=== PATIENT | male | born 1960 | race American Indian/Alaskan Native ===

== ENCOUNTER 2021-07-11 13:08 | Inpatient (IN) | payer SELFPAY ==
--- NOTE | 2021-07-11 15:02 | Event Note ---
ED Screening Note Date of service: 07/11/21 Time: 14:59 ED Screening Note: [id number] male was sent to the ER via EMS from urgent care after he was found to be hypoxic at a visit today with an O2 sat of 91% on room air. Patient reports that he has been sick with Covid-like/flulike symptoms for about 2 weeks including cough, shortness of breath, and chest pain when he takes a deep breath. He has also been having generalized weakness, nausea, vomiting diarrhea and chills. He states that he had a COVID-19 test that the urgent care last Tuesday and had a COVID-19 test and it was negative. He states that he is not sure if he had a rapid or the PCR test. He has not gotten a COVID-19 test. He denies any known ill contacts or recent travel. Patient states that he was prescribed amoxicillin and Medrol Dosepak on Tuesday which he has been taking without much relief. He had a chest x-ray done today at the urgent care which shows bibasilar opacities most concerning for multifocal infection. Patient denied any significant past medical history including tobacco use. This initial assessment/diagnostic orders/clinical plan/treatment(s) is/are subject to change based on patients health status, clinical progression and re- assessment by fellow clinical providers in the ED. Further treatment and workup at subsequent clinical providers discretion. Patient/guardian urged not to elope from the ED as their condition may be serious if not clinically assessed and managed. Initial orders include: Dyspnea order set
--- NOTE | 2021-07-11 15:52 | XRay Report ---
XR chest routine 2V INDICATION / CLINICAL INFORMATION: Dyspnea. COMPARISON: None available. FINDINGS: SUPPORT DEVICES: None. HEART /PULMONARY VASCULATURE: No significant abnormality. LUNGS / PLEURA: Low lung volumes. There are patchy bibasilar airspace opacities. No sizable pleural e ffusion. No pneumothorax. ADDITIONAL FINDINGS: No significant additional findings. IMPRESSION: Patchy pulmonary opacities, greatest within the lung bases, compatible with pneumonia. Signer Name: Fady Miller MD Signed: 07/11/2021 3:47 PM Workstation Name: [id number]
[2021-07-11 16:11] LABS: Basophils % (Auto) 0.2 % (0.0-1.8); Hematocrit 42.2 % (35.5-45.6); Lymphocytes # (Auto) 0.9 K/mm3 (1.2-5.4); Lymphocytes % (Auto) 15.7 % (13.4-35.0); Mean Corpuscular HGB Conc 33 % (32-34); Mean Corpuscular Volume 96 fl (84-94); Monocytes # (Auto) 0.9 K/mm3 (0.0-0.8); Monocytes % (Auto) 15.1 % (0.0-7.3); Platelet Count 143 K/mm3 (140-440); Red Blood Count 4.41 M/mm3 (3.65-5.03); Red Cell Distribution Width 12.9 % (13.2-15.2)
[2021-07-11 16:36] LABS: Alanine Aminotransferase 180 units/L (7-56); Albumin 3.6 g/dL (3.9-5); BUN/Creatinine Ratio 23; Blood Urea Nitrogen 25 mg/dL (9-20); Calcium 9.1 mg/dL (8.4-10.2); Hemolysis Index 5
--- NOTE | 2021-07-11 21:57 | Emergency Department Report ---
ED Shortness of Breath HPI - General Chief Complaint: Dyspnea/Respdistress Stated Complaint: FLU LIKE SX Time Seen by Provider: 07/11/21 21:48 Source: patient, EMS Mode of arrival: Wheelchair Limitations: No Limitations - History of Present Illness Initial Comments: 61-year-old male, no past medical history, presents to ED with Covid-like symptoms. Patient sent to ED from urgent care due to O2 sat of 89% on room air. Patient reports cold-like symptoms for approximately 2 weeks. He reports fever, chills, nausea, vomiting, diarrhea, cough, shortness of breath, loss of smell and taste, generalized weakness. Patient was previously seen at another urgent care 4 days ago. He had a negative flu and COVID-19 test at that time. He was given a prescription for amoxicillin and Medrol Dosepak to treat bronchitis. Patient has not received a COVID-19 vaccine. MD Complaint: shortness of breath -: week(s) (2) Severity: moderate Consistency: constant Improves With: rest Worsens With: exertion Context: recent URI Associated Symptoms: fever, cough Treatments Prior to Arrival: oxygen - Related Data Home Oxygen Therapy: No Allergies Allergy/AdvReac Type Severity Reaction Status Date / Time No Known Allergies Allergy Verified 07/11/21 23:17 ED Review of Systems ROS: Stated complaint: FLU LIKE SX Other details as noted in HPI Comment: All other systems reviewed and negative Constitutional: chills, fever, malaise, weakness ENT: other (Reports loss of smell and taste) Respiratory: cough, shortness of breath Gastrointestinal: nausea, vomiting, diarrhea Musculoskeletal: myalgia ED Past Medical Hx - Past Medical History Previous Medical History?: No - Surgical History Past Surgical History?: No ED Physical Exam - General Limitations: No Limitations General appearance: alert, in no apparent distress - Head Head exam: Present: atraumatic, normocephalic - Eye Eye exam: Present: normal appearance, EOMI - ENT ENT exam: Present: mucous membranes moist - Neck Neck exam: Present: normal inspection - Respiratory Respiratory exam: Present: normal lung sounds bilaterally. Absent: respiratory distress - Cardiovascular Cardiovascular Exam: Present: regular rate, normal rhythm - GI/Abdominal GI/Abdominal exam: Present: soft. Absent: distended, tenderness - Extremities Exam Extremities exam: Present: normal inspection - Neurological Exam Neurological exam: Present: alert, oriented X3 - Psychiatric Psychiatric exam: Present: normal affect, normal mood - Skin Skin exam: Present: warm, dry, intact, normal color ED Course Vital Signs 07/11/21 07/11/21 07/11/21 13:50 22:25 22:31 Temperature 98.4 F Pulse Rate 89 83 82 Respiratory 18 10 L 37 H Rate Blood Pressure 108/62 125/56 O2 Sat by Pulse 93 97 98 Oximetry 07/11/21 07/11/21 07/11/21 22:36 22:39 22:45 Temperature 98.8 F Pulse Rate 86 Respiratory 26 H Rate Blood Pressure 127/59 O2 Sat by Pulse 98 97 Oximetry 07/11/21 07/11/21 07/11/21 23:01 23:15 23:31 Temperature Pulse Rate 78 84 83 Respiratory 30 H 35 H 33 H Rate Blood Pressure 118/62 122/55 119/54 O2 Sat by Pulse 98 99 98 Oximetry 07/11/21 07/11/21 07/11/21 23:34 23:45 23:55 Temperature Pulse Rate 81 88 83 Respiratory 33 H 39 H 31 H Rate Blood Pressure 119/54 122/51 128/54 O2 Sat by Pulse 98 98 98 Oximetry 07/12/21 07/12/21 07/12/21 00:01 00:15 00:31 Temperature Pulse Rate 90 84 82 Respiratory 38 H 42 H 31 H Rate Blood Pressure 128/54 119/54 113/63 O2 Sat by Pulse 98 98 98 Oximetry 07/12/21 07/12/21 07/12/21 00:45 01:01 01:15 Temperature Pulse Rate 86 79 89 Respiratory 19 29 H 30 H Rate Blood Pressure 109/58 114/63 123/66 O2 Sat by Pulse 98 99 99 Oximetry 07/12/21 07/12/21 07/12/21 01:31 01:45 02:01 Temperature Pulse Rate 84 81 78 Respiratory 29 H 26 H 29 H Rate Blood Pressure 115/60 110/55 106/49 O2 Sat by Pulse 99 99 98 Oximetry 07/12/21 07/12/21 07/12/21 02:15 02:31 02:45 Temperature Pulse Rate 83 79 80 Respiratory 25 H 27 H 29 H Rate Blood Pressure 115/60 104/56 103/51 O2 Sat by Pulse 98 96 98 Oximetry 07/12/21 07/12/21 07/12/21 03:01 03:15 03:25 Temperature Pulse Rate 79 79 Respiratory 21 25 H Rate Blood Pressure 104/48 102/56 O2 Sat by Pulse 97 97 97 Oximetry ED Medical Decision Making - Lab Data Result diagrams: 07/11/21 15:40 07/12/21 00:16 - EKG Data -: EKG Interpreted by Me EKG shows normal: sinus rhythm, axis, intervals, QRS complexes, ST-T waves Rate: normal - EKG Data Interpretation: no acute changes - Radiology Data Radiology results: report reviewed, image reviewed - Medical Decision Making 61-year-old male presents to ED with 2-week history of cold-like symptoms and shortness of breath. O2 sats 89% on room air at outpatient urgent care center. Patient currently on 2 L O2. Chest x-ray shows bilateral pneumonia. Blood cultures drawn, patient given Rocephin, azithromycin, and Decadron. Labs show elevated liver enzymes. Covid markers have been sent. Covid test has been ordered. Patient will be admitted by hospitalist, Dr. Mcdonnell, for further management. - Differential Diagnosis COVID-19, pneumonia Critical Care Time: Yes Critical care time in (mins) excluding proc time.: 35 Critical care attestation.: If time is entered above; I have spent that time in minutes in the direct care of this critically ill patient, excluding procedure time. Critical Care Time: 35 min ED Disposition Clinical Impression: Acute on chronic respiratory failure with hypoxia, Pneumonia, Suspected COVID- 19 virus infection, Elevated liver enzymes Disposition: ADMITTED INPATIENT Is pt being admited?: Yes Condition: Stable Time of Disposition: 22:33
[2021-07-11] MEDS ORDERED: ONDANSETRON 4 MG/2 ML INJ IV ONE (21:59)
[2021-07-11] MEDS ORDERED: DEXAMETHASONE 4 MG TAB PO ONE (21:59)
[2021-07-11] MEDS ORDERED: AZITHROMYCIN 250 MG TAB PO ONE (21:59)
[2021-07-11] MEDS ORDERED: cefTRIAXone/NS 1 GM/50 ML 1 GM/50 ML BAG IV ONE (21:59)
[2021-07-11] MEDS ORDERED: HYDROmorphone 1 MG/1 ML INJ IV PRN (23:07)
[2021-07-11] MEDS ORDERED: ONDANSETRON 4 MG/2 ML INJ IV PRN (23:07)
[2021-07-11] MEDS ORDERED: ALBUTEROL 2.5 MG/3 ML NEBU IH PRN (23:07)
[2021-07-11] MEDS ORDERED: ACETAMINOPHEN 325 MG TAB PO PRN (23:07)
[2021-07-11] MEDS ORDERED: oxyCODONE /ACETAMINOPHEN 5-325MG TAB PO PRN (23:07)
[2021-07-11] MEDS ORDERED: hydrALAZINE 20 MG/1 ML INJ IV PRN (23:09)
--- NOTE | 2021-07-11 23:14 | History and Physical Report ---
History of Present Illness Date of examination: 07/11/21 Date of admission: 07/11/2021 Chief complaint: Shortness of breath Respiratory distress History of present illness: 61-year-old male, no past medical history, presents to ED with Covid-like symptoms for the last 2 weeks. Patient was sent from the urgent care because patient was found to have O2 sat of 89%. He reports fever, chills, nausea, vomiting, diarrhea, cough, shortness of breath, loss of smell and taste, generalized weakness. Patient was previously seen at another urgent care 4 days ago. He had a negative flu and COVID-19 test at that time. He was given a prescription for amoxicillin and Medrol Dosepak to treat bronchitis. Patient has not received a COVID-19 vaccine. In the emergency room patient chest x-ray showed Covid like pneumonia Medications and Allergies Allergies Allergy/AdvReac Type Severity Reaction Status Date / Time No Known Allergies Allergy Unverified 07/11/21 13:46 Review of Systems All systems: negative Constitutional: fever Respiratory: cough, shortness of breath, dyspnea on exertion Exam - Constitutional Vitals: Temp Pulse Resp BP Pulse Ox 98.8 F 82 37 H 125/56 98 07/11/21 22:36 07/11/21 22:31 07/11/21 22:31 07/11/21 22:31 07/11/21 22:39 General appearance: Present: no acute distress, well-nourished - EENT Eyes: Present: PERRL ENT: hearing intact, clear oral mucosa - Neck Neck: Present: supple, normal ROM - Respiratory Respiratory effort: normal Respiratory: bilateral: diminished - Cardiovascular Heart Sounds: Present: S1 & S2. Absent: rub, click - Extremities Extremities: pulses symmetrical, No edema Peripheral Pulses: within normal limits - Abdominal General gastrointestinal: Present: soft, non-tender, non-distended, normal bowel sounds Male genitourinary: Present: normal - Integumentary Integumentary: Present: clear, warm, dry - Musculoskeletal Musculoskeletal: gait normal, strength equal bilaterally - Psychiatric Psychiatric: appropriate mood/affect, intact judgment & insight - Neurologic Neurologic: CNII-XII intact, moves all extremities HEART Score - HEART Score Troponin: Troponin T < 0.010 ng/mL (0.00-0.029) 07/11/21 15:40 Results - Labs CBC & Chem 7: 07/11/21 15:40 07/11/21 15:40 Labs: Laboratory Last Values WBC 5.7 K/mm3 (4.5-11.0) 07/11/21 15:40 RBC 4.41 M/mm3 (3.65-5.03) 07/11/21 15:40 Hgb 14.0 gm/dl (11.8-15.2) 07/11/21 15:40 Hct 42.2 % (35.5-45.6) 07/11/21 15:40 MCV 96 fl (84-94) H 07/11/21 15:40 MCH 32 pg (28-32) 07/11/21 15:40 MCHC 33 % (32-34) 07/11/21 15:40 RDW 12.9 % (13.2-15.2) L 07/11/21 15:40 Plt Count 143 K/mm3 (140-440) 07/11/21 15:40 Lymph % (Auto) 15.7 % (13.4-35.0) 07/11/21 15:40 [place] % (Auto) 15.1 % (0.0-7.3) H 07/11/21 15:40 Eos % (Auto) 0.0 % (0.0-4.3) 07/11/21 15:40 Baso % (Auto) 0.2 % (0.0-1.8) 07/11/21 15:40 Lymph # (Auto) 0.9 K/mm3 (1.2-5.4) L 07/11/21 15:40 [place] # (Auto) 0.9 K/mm3 (0.0-0.8) H 07/11/21 15:40 Eos # (Auto) 0.0 K/mm3 (0.0-0.4) 07/11/21 15:40 Baso # (Auto) 0.0 K/mm3 (0.0-0.1) 07/11/21 15:40 Seg Neutrophils % 69.0 % (40.0-70.0) 07/11/21 15:40 Seg Neutrophils # 3.9 K/mm3 (1.8-7.7) 07/11/21 15:40 Sodium 136 mmol/L (137-145) L 07/11/21 15:40 Potassium 4.4 mmol/L (3.6-5.0) 07/11/21 15:40 Chloride 96.7 mmol/L (98-107) L 07/11/21 15:40 Carbon Dioxide 28 mmol/L (22-30) 07/11/21 15:40 Anion Gap 16 mmol/L 07/11/21 15:40 BUN 25 mg/dL (9-20) H 07/11/21 15:40 Creatinine 1.1 mg/dL (0.8-1.3) 07/11/21 15:40 Estimated GFR > 60 ml/min 07/11/21 15:40 BUN/Creatinine Ratio 23 % 07/11/21 15:40 Glucose 106 mg/dL (75-100) H 07/11/21 15:40 Calcium 9.1 mg/dL (8.4-10.2) 07/11/21 15:40 Magnesium 2.60 mg/dL (1.7-2.3) H 07/11/21 15:40 Total Bilirubin 1.20 mg/dL (0.1-1.2) 07/11/21 15:40 AST 187 units/L (5-40) H 07/11/21 15:40 ALT 180 units/L (7-56) H 07/11/21 15:40 Alkaline Phosphatase 74 units/L (35-129) 07/11/21 15:40 Troponin T < 0.010 ng/mL (0.00-0.029) 07/11/21 15:40 Total Protein 7.7 g/dL (6.3-8.2) 07/11/21 15:40 Albumin 3.6 g/dL (3.9-5) L 07/11/21 15:40 Albumin/Globulin Ratio 0.9 % 07/11/21 15:40 Lipase 60 units/L (13-60) 07/11/21 15:40 - Imaging and Cardiology Chest x-ray: report reviewed Assessment and Plan VTE prophylaxis?: Chemical Plan of care discussed with patient/family: Yes - Patient Problems (1) Acute on chronic respiratory failure with hypoxia Current Visit: Yes Status: Acute Plan to address problem: Admit the patient to the medical floor. Put the patient on oxygen via nasal cannula 3 L/min. DuoNeb by nebulizer every 4 hours. Albuterol via nebulizer every 4 hours as needed. Dexamethasone 6 mg IV daily. Rocephin 2 g IV daily and Zithromax 500 mg IV daily. We do the blood cultures sputum culture. We will do Covid PCR and follow the Covid inflammatory marker. We also consult infectious disease (2) Suspected COVID-19 virus infection Current Visit: Yes Status: Acute Plan to address problem: Put the patient on oxygen via nasal cannula 3 L/min. DuoNeb by nebulizer every 4 hours. Albuterol via nebulizer every 4 hours as needed. Dexamethasone 6 mg IV daily. Rocephin 2 g IV daily and Zithromax 500 mg IV daily. We do the blood cultures sputum culture. We will do Covid PCR and follow the Covid inflammatory marker. We also consult infectious disease (3) Pneumonia Current Visit: Yes Status: Acute Plan to address problem: Rocephin 2 g IV daily and Zithromax 500 mg IV daily. We do the blood cultures sputum culture. We will do Covid PCR and follow the Covid inflammatory marker. We also consult infectious disease (4) DVT prophylaxis Current Visit: Yes Status: Acute Plan to address problem: Heparin 5000 units subcu every 8 hours for DVT prophylaxis. Pepcid 20 mg p.o. twice daily for GI prophylaxis. Patient is a full code
[2021-07-12] MEDS: cefTRIAXone/NS 2 GM/100 ML 2 GM/100 ML BAG IV SCH
[2021-07-12 01:32] LABS: C-Reactive Protein 10.6 mg/dL (0.00-1.30)
[2021-07-12] MEDS: IPRATROPIUM/ALBUTEROL SULFATE 3 ML AMPUL.NEB IH SCH ×3 (03:25→16:45)
[2021-07-12 06:55] LABS: Basophils % (Auto) 0.1 % (0.0-1.8); Hematocrit 38.4 % (35.5-45.6); Hemoglobin 12.8 gm/dl (11.8-15.2); Lymphocytes # (Auto) 0.6 K/mm3 (1.2-5.4); Lymphocytes % (Auto) 11.4 % (13.4-35.0); Mean Corpuscular HGB Conc 33 % (32-34); Mean Corpuscular Volume 95 fl (84-94); Monocytes # (Auto) 0.7 K/mm3 (0.0-0.8); Monocytes % (Auto) 15.3 % (0.0-7.3); Platelet Count 145 K/mm3 (140-440); Red Blood Count 4.03 M/mm3 (3.65-5.03); Red Cell Distribution Width 13.2 % (13.2-15.2)
[2021-07-12 07:06] LABS: BUN/Creatinine Ratio 25; Blood Urea Nitrogen 33 mg/dL (9-20); Calcium 8.5 mg/dL (8.4-10.2); Hemolysis Index 0
[2021-07-12] MEDS: HEPARIN 5,000 UNIT/1 ML VIAL SUB-Q SCH ×3 (07:32→23:40)
--- NOTE | 2021-07-12 08:47 | Progress Note ---
Assessment and Plan Assessment and plan: 61-year-old male, no past medical history, presents with Covid-like symptoms for the last 2 weeks. Sent from urgent care due to O2 sat of 89%. ROS positive for fever, chills, nausea, vomiting, diarrhea, cough, shortness of breath, loss of smell and taste, generalized weakness. He was negative for flu and COVID-19 test at that time add a different urgent care facility 4 days ago and was given a prescription for amoxicillin and Medrol Dosepak to treat bronchitis. Patient has not received a COVID-19 vaccine. 1. acute on chronic respiratory failure with hypoxia -Supplemental oxygen currently on 3 L/min. De-escalate as patient tolerates. If worsens will consider pulmonology consult. - Chest x-ray with bilateral patchy opacities. Inflammatory markers elevated. Procalcitonin is elevated 0.4. Blood cultures, sputum culture DuoNebs scheduled and as needed Decadron 6 mg IV x10-day total to therapy Azithromycin IV/ceftriaxone IV initiated Remdesivir not indicated per infectious disease 2. Suspected COVID-19 virus infection Pending COVID-19 test. -Follow inflammatory markers Infectious disease consulted, recommend discontinuation of Covid standard therapy if test negative 3. Pneumonia -Management as above 4.transaminitis Likely due to underlying infection Trend on hepatic profile 5. DVT prophylaxis Heparin 5000 units subcu every 8 hours Code Status: Full code Diet: Regular diet VTE PPx: Heparin 5000 units subcu q 8 h GI PPx: Not indicated Dispo: Pending clinical improvement and de-escalation of oxygen. Follow-up Covid 19 PCR test History Interval history: No acute overnight events. Patient states that he is feeling better compared to yesterday. Hospitalist Physical - Physical exam Narrative exam: Physical Exam: Constitutional: Alert, cooperative. No acute distress. On 3L/min NC. Head, Ears, Nose: Normocephalic, atraumatic. External ears, nose normal Eyes: Conjunctivae/corneas clear. No icterus. No ptosis. Neck: Supple, no meningeal signs Oral: dentition fair, no thrush Cardiovascular: S1, S2 normal. Respiratory: Poor air entry, wheezes bilaterally GI: Soft, non-tender; bowel sounds normal. No peritoneal signs. Musculoskeletal: No pedal edema, no cyanosis. Skin: No rash or abscess Hem/Lymphatic: No palpable cervical or supraclavicular nodes. No lymphangitis Psych: Mood ok. Affect normal Neurological: Awake, alert, oriented. No gross abnormality - Constitutional Vitals: Temp Pulse Resp BP Pulse Ox 98.8 F 84 44 H 106/61 95 07/11/21 22:36 07/12/21 06:31 07/12/21 06:31 07/12/21 06:31 07/12/21 06:31 General appearance: Present: no acute distress, well-nourished HEART Score - HEART Score Troponin: Troponin T < 0.010 ng/mL (0.00-0.029) 07/11/21 15:40 Results - Labs CBC & Chem 7: 07/12/21 05:52 07/12/21 05:52 Labs: Laboratory Last Values WBC 4.8 K/mm3 (4.5-11.0) 07/12/21 05:52 RBC 4.03 M/mm3 (3.65-5.03) 07/12/21 05:52 Hgb 12.8 gm/dl (11.8-15.2) 07/12/21 05:52 Hct 38.4 % (35.5-45.6) 07/12/21 05:52 MCV 95 fl (84-94) H 07/12/21 05:52 MCH 32 pg (28-32) 07/12/21 05:52 MCHC 33 % (32-34) 07/12/21 05:52 RDW 13.2 % (13.2-15.2) 07/12/21 05:52 Plt Count 145 K/mm3 (140-440) 07/12/21 05:52 Lymph % (Auto) 11.4 % (13.4-35.0) L 07/12/21 05:52 [place] % (Auto) 15.3 % (0.0-7.3) H 07/12/21 05:52 Eos % (Auto) 0.0 % (0.0-4.3) 07/12/21 05:52 Baso % (Auto) 0.1 % (0.0-1.8) 07/12/21 05:52 Lymph # (Auto) 0.6 K/mm3 (1.2-5.4) L 07/12/21 05:52 [place] # (Auto) 0.7 K/mm3 (0.0-0.8) 07/12/21 05:52 Eos # (Auto) 0.0 K/mm3 (0.0-0.4) 07/12/21 05:52 Baso # (Auto) 0.0 K/mm3 (0.0-0.1) 07/12/21 05:52 Seg Neutrophils % 73.2 % (40.0-70.0) H 07/12/21 05:52 Seg Neutrophils # 3.5 K/mm3 (1.8-7.7) 07/12/21 05:52 D-Dimer 601.22 ng/mlDDU (0-234) H 07/12/21 00:16 Sodium 139 mmol/L (137-145) 07/12/21 05:52 Potassium 4.2 mmol/L (3.6-5.0) 07/12/21 05:52 Chloride 99.7 mmol/L (98-107) 07/12/21 05:52 Carbon Dioxide 29 mmol/L (22-30) 07/12/21 05:52 Anion Gap 15 mmol/L 07/12/21 05:52 BUN 33 mg/dL (9-20) H 07/12/21 05:52 Creatinine 1.3 mg/dL (0.8-1.3) 07/12/21 05:52 Estimated GFR > 60 ml/min 07/12/21 05:52 BUN/Creatinine Ratio 25 % 07/12/21 05:52 Glucose 119 mg/dL (75-100) H 07/12/21 05:52 Calcium 8.5 mg/dL (8.4-10.2) 07/12/21 05:52 Magnesium 2.60 mg/dL (1.7-2.3) H 07/11/21 15:40 Ferritin 7307.0 ng/mL (30.0-300.0) H 07/12/21 00:16 Total Bilirubin 1.20 mg/dL (0.1-1.2) 07/11/21 15:40 AST 187 units/L (5-40) H 07/11/21 15:40 ALT 180 units/L (7-56) H 07/11/21 15:40 Alkaline Phosphatase 74 units/L (35-129) 07/11/21 15:40 Lactate Dehydrogenase 774 units/L (91-180) H 07/12/21 00:16 Troponin T < 0.010 ng/mL (0.00-0.029) 07/11/21 15:40 C-Reactive Protein 10.60 mg/dL (0.00-1.30) H 07/12/21 00:16 Total Protein 7.7 g/dL (6.3-8.2) 07/11/21 15:40 Albumin 3.6 g/dL (3.9-5) L 07/11/21 15:40 Albumin/Globulin Ratio 0.9 % 07/11/21 15:40 Lipase 60 units/L (13-60) 07/11/21 15:40 Microbiology: Microbiology 07/12/21 00:16 Peripheral/Venous Blood Culture - Preliminary Culture in Progress 07/12/21 00:12 Peripheral/Venous Blood Culture - Preliminary Culture in Progress Active Medications - Current Medications Current Medications: Generic Name Dose Route Start Last Admin Trade Name Freq PRN Reason Stop Dose Admin Acetaminophen 650 mg 07/11/21 23:07 Acetaminophen 325 Mg Tab PO Q4H PRN Pain MILD(1-3)/Fever >100.5/HOPPER Albuterol 2.5 mg 07/11/21 23:07 Albuterol 2.5 Mg/3 Ml Nebu IH Q4HRT PRN Shortness Of Breath Albuterol/Ipratropium 1 ampul 07/12/21 02:00 07/12/21 03:25 Ipratropium/Albuterol Sulfate 3 Ml Ampul.Neb IH Not Given Q6HRT [facility] Dexamethasone 6 mg 07/12/21 10:00 Dexamethasone 4 Mg/Ml Vial IV DAILY DARY Famotidine 20 mg 07/12/21 10:00 Famotidine 20 Mg Tab PO BID DARY Heparin Sodium (Porcine) 5,000 unit 07/12/21 06:00 07/12/21 07:32 Heparin 5,000 Unit/1 Ml Vial SUB-Q 5,000 unit Q8HR DARY Administration Hydralazine HCl 10 mg 07/11/21 23:09 Hydralazine 20 Mg/1 Ml Inj IV Q6H PRN Blood Pressure Hydromorphone HCl 0.5 mg 07/11/21 23:07 Hydromorphone 1 Mg/1 Ml Inj IV Q3H PRN Pain , Severe (7-10) Ceftriaxone Sodium 2 gm in 100 mls @ 200 mls/hr 07/12/21 23:00 Rocephin/Ns 2 Gm/100 Ml IV Q24H [facility] Protocol Azithromycin 500 mg in 250 mls @ 250 mls/hr 07/12/21 23:00 Zithromax/Ns IV Q24H [facility] Protocol Ondansetron HCl 4 mg 07/11/21 23:07 Ondansetron 4 Mg/2 Ml Inj IV Q8H PRN Nausea And Vomiting Oxycodone/Acetaminophen 1 tab 07/11/21 23:07 Oxycodone /Acetaminophen 5-325mg Tab PO Q6H PRN Pain, Moderate (4-6) Sodium Chloride 10 ml 07/12/21 10:00 Sodium Chloride 0.9% 10 Ml Flush Syringe IV BID DARY Sodium Chloride 10 ml 07/11/21 23:07 Sodium Chloride 0.9% 10 Ml Flush Syringe IV PRN PRN LINE FLUSH
[2021-07-12] MEDS ORDERED: FAMOTIDINE 20 MG TAB PO SCH (10:00)
[2021-07-12] MEDS: dexAMETHasone 4 MG/ML VIAL IV SCH (11:51)
--- NOTE | 2021-07-12 11:55 | Consultation ---
History of Present Illness - Reason for Consult Consult date: 07/12/21 COVID-19 - History of Present Illness 61-year-old male without any medical history admitted for 2-week history of fever, chills, nausea, vomiting, diarrhea, cough, progressive shortness of breath. Patient was seen at urgent care facility and O2 sat were found down to 89%. Patient was given a prescription for amoxicillin and Medrol pack without improvement. Patient did not receive COVID-19 vaccination. On arrival O2 sat down to 93%, patient currently on 3 L nasal cannula. Review of Systems: reviewed ED and H&P notes. Review of system deferred to minimize COVID-19 transmission. Medications and Allergies Allergies Allergy/AdvReac Type Severity Reaction Status Date / Time No Known Allergies Allergy Verified 07/11/21 23:17 Active Meds: Active Medications Acetaminophen (Acetaminophen 325 Mg Tab) 650 mg PO Q4H PRN PRN Reason: Pain MILD(1-3)/Fever >100.5/HOPPER Albuterol (Albuterol 2.5 Mg/3 Ml Nebu) 2.5 mg IH Q4HRT PRN PRN Reason: Shortness Of Breath Albuterol/Ipratropium (Ipratropium/Albuterol Sulfate 3 Ml Ampul.Neb) 1 ampul IH Q6HRT [facility] Last Admin: 07/12/21 11:13 Dose: 1 ampul Documented by: Dexamethasone (Dexamethasone 4 Mg/Ml Vial) 6 mg IV DAILY [facility] Last Admin: 07/12/21 11:51 Dose: 6 mg Documented by: Famotidine (Famotidine 20 Mg Tab) 20 mg PO BID [facility] Last Admin: 07/12/21 11:51 Dose: 20 mg Documented by: Heparin Sodium (Porcine) (Heparin 5,000 Unit/1 Ml Vial) 5,000 unit SUB-Q Q8HR [facility] Last Admin: 07/12/21 07:32 Dose: 5,000 unit Documented by: Hydralazine HCl (Hydralazine 20 Mg/1 Ml Inj) 10 mg IV Q6H PRN PRN Reason: Blood Pressure Hydromorphone HCl (Hydromorphone 1 Mg/1 Ml Inj) 0.5 mg IV Q3H PRN PRN Reason: Pain , Severe (7-10) Ceftriaxone Sodium (Rocephin/Ns 2 Gm/100 Ml) 2 gm in 100 mls @ 200 mls/hr IV Q24H DARY; Protocol Azithromycin (Zithromax/Ns) 500 mg in 250 mls @ 250 mls/hr IV Q24H DARY; Protocol Ondansetron HCl (Ondansetron 4 Mg/2 Ml Inj) 4 mg IV Q8H PRN PRN Reason: Nausea And Vomiting Oxycodone/Acetaminophen (Oxycodone /Acetaminophen 5-325mg Tab) 1 tab PO Q6H PRN PRN Reason: Pain, Moderate (4-6) Sodium Chloride (Sodium Chloride 0.9% 10 Ml Flush Syringe) 10 ml IV BID DARY Last Admin: 07/12/21 11:51 Dose: 10 ml Documented by: Sodium Chloride (Sodium Chloride 0.9% 10 Ml Flush Syringe) 10 ml IV PRN PRN PRN Reason: LINE FLUSH Physical Examination - Physical Exam Narrative exam: Physical exam deferred to minimize COVID-19 transmission during pandemic. - Constitutional Vitals: Vital Signs Temp Pulse Resp BP Pulse Ox 98.8 F 84 44 H 106/61 95 07/11/21 22:36 07/12/21 06:31 07/12/21 06:31 07/12/21 06:31 07/12/21 06:31 Temperature -Last 24 Hours Temperature 98.8 F Temperature 98.4 F Results - Labs CBC & Chem 7: 07/12/21 05:52 07/12/21 05:52 Labs: Abnormal lab results 07/11/21 07/11/21 07/12/21 Range/Units 15:40 15:40 00:16 MCV 96 H (84-94) fl RDW 12.9 L (13.2-15.2) % Lymph % (Auto) (13.4-35.0) % [place] % (Auto) 15.1 H (0.0-7.3) % Lymph # (Auto) 0.9 L (1.2-5.4) K/mm3 [place] # (Auto) 0.9 H (0.0-0.8) K/mm3 Seg Neutrophils % (40.0-70.0) % D-Dimer 601.22 H (0-234) ng/mlDDU Sodium 136 L (137-145) mmol/L Chloride 96.7 L (98-107) mmol/L BUN 25 H (9-20) mg/dL Glucose 106 H (75-100) mg/dL Magnesium 2.60 H (1.7-2.3) mg/dL Ferritin (30.0-300.0) ng/mL AST 187 H (5-40) units/L ALT 180 H (7-56) units/L Lactate Dehydrogenase (91-180) units/L C-Reactive Protein (0.00-1.30) mg/dL Albumin 3.6 L (3.9-5) g/dL 07/12/21 07/12/21 07/12/21 Range/Units 00:16 00:16 05:52 MCV 95 H (84-94) fl RDW (13.2-15.2) % Lymph % (Auto) 11.4 L (13.4-35.0) % [place] % (Auto) 15.3 H (0.0-7.3) % Lymph # (Auto) 0.6 L (1.2-5.4) K/mm3 [place] # (Auto) (0.0-0.8) K/mm3 Seg Neutrophils % 73.2 H (40.0-70.0) % D-Dimer (0-234) ng/mlDDU Sodium (137-145) mmol/L Chloride (98-107) mmol/L BUN (9-20) mg/dL Glucose 104 H (75-100) mg/dL Magnesium (1.7-2.3) mg/dL Ferritin 7307.0 H (30.0-300.0) ng/mL AST (5-40) units/L ALT (7-56) units/L Lactate Dehydrogenase 774 H (91-180) units/L C-Reactive Protein 10.60 H (0.00-1.30) mg/dL Albumin (3.9-5) g/dL 07/12/21 Range/Units 05:52 MCV (84-94) fl RDW (13.2-15.2) % Lymph % (Auto) (13.4-35.0) % [place] % (Auto) (0.0-7.3) % Lymph # (Auto) (1.2-5.4) K/mm3 [place] # (Auto) (0.0-0.8) K/mm3 Seg Neutrophils % (40.0-70.0) % D-Dimer (0-234) ng/mlDDU Sodium (137-145) mmol/L Chloride (98-107) mmol/L BUN 33 H (9-20) mg/dL Glucose 119 H (75-100) mg/dL Magnesium (1.7-2.3) mg/dL Ferritin (30.0-300.0) ng/mL AST (5-40) units/L ALT (7-56) units/L Lactate Dehydrogenase (91-180) units/L C-Reactive Protein (0.00-1.30) mg/dL Albumin (3.9-5) g/dL Assessment and Plan Cultures: Blood culture pending SARS CoV2 PCR pending Assessment: 61-year-old male without any medical history admitted for 2-week history of fever, chills, nausea, vomiting, diarrhea, cough, progressive shortness of breath: #Presumed COVID pneumonia versus community-acquired pneumonia: Chest x-ray with bilateral patchy opacities. Inflammatory markers elevated with a CRP of 10. Procalcitonin is elevated 0.4. #Acute hypoxemic respiratory failure: Sats dropped to 93, currently on 3 L. Likely due to COVID-19 #Elevated LFTs: Likely secondary to COVID-19. Recommendations: -Follow-up SARS-CoV-2 PCR -Start Dexamethasone 6 mg IV/PO daily for 10 days will stop if SARS-CoV-2 PCR is negative. -No candidate for remdesivir as symptoms are more than 2 weeks -Monitor inflammatory markers - ferritin, Ddimer, CRP, LDH -Continue anticoagulation per System Protocol -Continue ceftriaxone and azithromycin, procalcitonin >0.25 ng/mL All laboratory, cultures and imaging were reviewed. Will follow Myriam Burgess MD Infectious Diseases [facility] ([facility] M [phone] O [phone]
[2021-07-12] MEDS ORDERED: ALBUTEROL 8.5 GM MDI INHALATION IH PRN (14:29)
[2021-07-13] MEDS: AZITHROMYCIN/NS 500 MG/250 ML 500 MG/250 ML BAG IV SCH ×2 (01:00→23:32)
[2021-07-13 04:55] LABS: Basophils % (Auto) 0.2 % (0.0-1.8); Hematocrit 37.9 % (35.5-45.6); Hemoglobin 12.5 gm/dl (11.8-15.2); Lymphocytes # (Auto) 0.8 K/mm3 (1.2-5.4); Lymphocytes % (Auto) 12.4 % (13.4-35.0); Mean Corpuscular HGB Conc 33 % (32-34); Mean Corpuscular Volume 96 fl (84-94); Monocytes # (Auto) 0.9 K/mm3 (0.0-0.8); Monocytes % (Auto) 14.5 % (0.0-7.3); Platelet Count 177 K/mm3 (140-440); Red Blood Count 3.97 M/mm3 (3.65-5.03); Red Cell Distribution Width 13.2 % (13.2-15.2)
[2021-07-13 05:21] LABS: Alanine Aminotransferase 164 units/L (7-56); Albumin 3.2 g/dL (3.9-5); BUN/Creatinine Ratio 33; Blood Urea Nitrogen 43 mg/dL (9-20); Calcium 8.7 mg/dL (8.4-10.2); Hemolysis Index 3
--- NOTE | 2021-07-13 10:58 | Electrocardiograph Report ---
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
[2021-07-13] MEDS: dexAMETHasone 4 MG/ML VIAL IV SCH (11:32)
--- NOTE | 2021-07-13 14:07 | Progress Note ---
Assessment and Plan Assessment and plan: 61-year-old male, no past medical history, presents with Covid-like symptoms for the last 2 weeks. Sent from urgent care due to O2 sat of 89%. ROS positive for fever, chills, nausea, vomiting, diarrhea, cough, shortness of breath, loss of smell and taste, generalized weakness. He was negative for flu and COVID-19 test at that time add a different urgent care facility 4 days ago and was given a prescription for amoxicillin and Medrol Dosepak to treat bronchitis. Patient has not received a COVID-19 vaccine. 1. acute on chronic respiratory failure with hypoxia -Supplemental oxygen currently on 3 L/min. De-escalate as patient tolerates. If worsens will consider pulmonology consult. - Chest x-ray with bilateral patchy opacities. Inflammatory markers elevated. Procalcitonin is elevated 0.4. Blood cultures, sputum culture DuoNebs scheduled and as needed Decadron 6 mg IV x10-day total to therapy Azithromycin IV/ceftriaxone IV initiated Remdesivir not indicated per infectious disease 2. COVID 10 Pneumonia Pending COVID-19 test. -Follow inflammatory markers Infectious disease consulted, recommend discontinuation of Covid standard therapy if test negative 3. Bilateral Pneumonia -Management as above 4. Transaminitis Likely due to underlying infection Trend on hepatic profile 5. DVT prophylaxis Heparin 5000 units subcu every 8 hours Code Status: DNR/AND Diet: Regular diet VTE PPx: Heparin 5000 units subcu q 8 h GI PPx: Not indicated Dispo: Pending clinical improvement and de-escalation of oxygen. COVID +. Started on all guidelines directed therapies. ID following. Had extension into extensive discussion should patient deteriorate. Patient states that he would not like any aggressive measures in the form of CPR or intubation with subs equent mechanical ventilation. Discussed this at length with the patient who was firm in his decision. Paperwork signed for DNR/AND. History Interval history: Patient states that he is still feeling pretty weak and tired this morning. States that while congested his symptoms have improved compared to yesterday. He is aware his Covid test is positive. Had advanced directives distant discussion with patient who stated he does not want to be full code and would like to be DNR/DNI should he get worse. Paperwork signed by physician. Hospitalist Physical - Physical exam Narrative exam: Physical Exam: Constitutional: Alert, cooperative. No acute distress. On 3L/min NC. Head, Ears, Nose: Normocephalic, atraumatic. External ears, nose normal Eyes: Conjunctivae/corneas clear. No icterus. No ptosis. Neck: Supple, no meningeal signs Oral: dentition fair, no thrush Cardiovascular: S1, S2 normal. Respiratory: Poor air entry, wheezes bilaterally GI: Soft, non-tender; bowel sounds normal. No peritoneal signs. Musculoskeletal: No pedal edema, no cyanosis. Skin: No rash or abscess Hem/Lymphatic: No palpable cervical or supraclavicular nodes. No lymphangitis Psych: Mood ok. Affect normal Neurological: Awake, alert, oriented. No gross abnormality - Constitutional Vitals: Temp Pulse Resp BP Pulse Ox 97.8 F 74 36 H 123/69 96 07/13/21 08:00 07/13/21 12:01 07/13/21 12:01 07/13/21 12:01 07/13/21 12:01 General appearance: Present: no acute distress, well-nourished HEART Score - HEART Score Troponin: Troponin T < 0.010 ng/mL (0.00-0.029) 07/11/21 15:40 Results - Labs CBC & Chem 7: 07/13/21 04:25 07/13/21 04:25 Labs: Laboratory Last Values WBC 6.3 K/mm3 (4.5-11.0) 07/13/21 04:25 RBC 3.97 M/mm3 (3.65-5.03) 07/13/21 04:25 Hgb 12.5 gm/dl (11.8-15.2) 07/13/21 04:25 Hct 37.9 % (35.5-45.6) 07/13/21 04:25 MCV 96 fl (84-94) H 07/13/21 04:25 MCH 32 pg (28-32) 07/13/21 04:25 MCHC 33 % (32-34) 07/13/21 04:25 RDW 13.2 % (13.2-15.2) 07/13/21 04:25 Plt Count 177 K/mm3 (140-440) 07/13/21 04:25 Lymph % (Auto) 12.4 % (13.4-35.0) L 07/13/21 04:25 [place] % (Auto) 14.5 % (0.0-7.3) H 07/13/21 04:25 Eos % (Auto) 0.0 % (0.0-4.3) 07/13/21 04:25 Baso % (Auto) 0.2 % (0.0-1.8) 07/13/21 04:25 Lymph # (Auto) 0.8 K/mm3 (1.2-5.4) L 07/13/21 04:25 [place] # (Auto) 0.9 K/mm3 (0.0-0.8) H 07/13/21 04:25 Eos # (Auto) 0.0 K/mm3 (0.0-0.4) 07/13/21 04:25 Baso # (Auto) 0.0 K/mm3 (0.0-0.1) 07/13/21 04:25 Seg Neutrophils % 72.9 % (40.0-70.0) H 07/13/21 04:25 Seg Neutrophils # 4.6 K/mm3 (1.8-7.7) 07/13/21 04:25 D-Dimer 601.22 ng/mlDDU (0-234) H 07/12/21 00:16 Sodium 139 mmol/L (137-145) 07/13/21 04:25 Potassium 3.9 mmol/L (3.6-5.0) 07/13/21 04:25 Chloride 100.1 mmol/L (98-107) 07/13/21 04:25 Carbon Dioxide 29 mmol/L (22-30) 07/13/21 04:25 Anion Gap 14 mmol/L 07/13/21 04:25 BUN 43 mg/dL (9-20) H 07/13/21 04:25 Creatinine 1.3 mg/dL (0.8-1.3) 07/13/21 04:25 Estimated GFR > 60 ml/min 07/13/21 04:25 BUN/Creatinine Ratio 33 % 07/13/21 04:25 Glucose 130 mg/dL (75-100) H 07/13/21 04:25 Calcium 8.7 mg/dL (8.4-10.2) 07/13/21 04:25 Magnesium 2.60 mg/dL (1.7-2.3) H 07/11/21 15:40 Ferritin 7307.0 ng/mL (30.0-300.0) H 07/12/21 00:16 Total Bilirubin 0.90 mg/dL (0.1-1.2) 07/13/21 04:25 AST 156 units/L (5-40) H 07/13/21 04:25 ALT 164 units/L (7-56) H 07/13/21 04:25 Alkaline Phosphatase 66 units/L (35-129) 07/13/21 04:25 Lactate Dehydrogenase 774 units/L (91-180) H 07/12/21 00:16 Troponin T < 0.010 ng/mL (0.00-0.029) 07/11/21 15:40 C-Reactive Protein 10.60 mg/dL (0.00-1.30) H 07/12/21 00:16 Total Protein 7.0 g/dL (6.3-8.2) 07/13/21 04:25 Albumin 3.2 g/dL (3.9-5) L 07/13/21 04:25 Albumin/Globulin Ratio 0.8 % 07/13/21 04:25 Lipase 60 units/L (13-60) 07/11/21 15:40 Procalcitonin 0.45 ng/mL (<0.15) 07/12/21 00:16 Coronavirus (PCR) Positive (Negative) A 07/11/21 10:47 Microbiology: Microbiology 07/12/21 00:16 Peripheral/Venous Blood Culture - Preliminary NO GROWTH AFTER 24 HOURS 07/12/21 00:12 Peripheral/Venous Blood Culture - Preliminary NO GROWTH AFTER 24 HOURS Active Medications - Current Medications Current Medications: Generic Name Dose Route Start Last Admin Trade Name Freq PRN Reason Stop Dose Admin Acetaminophen 650 mg 07/11/21 23:07 Acetaminophen 325 Mg Tab PO Q4H PRN Pain MILD(1-3)/Fever >100.5/HOPPER Albuterol 2 puff 07/12/21 14:29 Albuterol 8.5 Gm Mdi Inhalation IH Q6HRT PRN Shortness Of Breath Dexamethasone 6 mg 07/12/21 10:00 07/13/21 11:32 Dexamethasone 4 Mg/Ml Vial IV 07/20/21 10:01 6 mg DAILY DARY Administration Heparin Sodium (Porcine) 5,000 unit 07/12/21 06:00 07/12/21 23:40 Heparin 5,000 Unit/1 Ml Vial SUB-Q 5,000 unit Q8HR DARY Administration Hydralazine HCl 10 mg 07/11/21 23:09 Hydralazine 20 Mg/1 Ml Inj IV Q6H PRN Blood Pressure Ceftriaxone Sodium 2 gm in 100 mls @ 200 mls/hr 07/12/21 23:00 07/12/21 00:00 Rocephin/Ns 2 Gm/100 Ml IV 200 mls/hr Q24H DARY Administration Protocol Azithromycin 500 mg in 250 mls @ 250 mls/hr 07/12/21 23:00 07/13/21 01:00 Zithromax/Ns IV 250 mls/hr Q24H DARY Administration Protocol Ondansetron HCl 4 mg 07/11/21 23:07 Ondansetron 4 Mg/2 Ml Inj IV Q8H PRN Nausea And Vomiting Sodium Chloride 10 ml 07/12/21 10:00 07/13/21 11:32 Sodium Chloride 0.9% 10 Ml Flush Syringe IV 10 ml BID DARY Administration Sodium Chloride 10 ml 07/11/21 23:07 Sodium Chloride 0.9% 10 Ml Flush Syringe IV PRN PRN LINE FLUSH
--- NOTE | 2021-07-13 16:38 | Progress Note ---
Assessment and Plan Cultures: Blood culture: No growth COVID-19 PCR: Positive Assessment: 61-year-old male without any medical history admitted for 2-week history of fever, chills, nausea, vomiting, diarrhea, cough, progressive shortness of breath: #COVID pneumonia: Chest x-ray with bilateral patchy opacities. Inflammatory markers elevated with a CRP of 10. Procalcitonin is elevated 0.4. #Acute hypoxemic respiratory failure: Likely due to COVID-19 #Elevated LFTs: Likely secondary to COVID-19. Recommendations: Continue steroids, complete 10 days Not a candidate for remdesivir as symptoms were present for more than 2 weeks Complete 5 days of empiric ceftriaxone and 3 days of azithromycin Monitor inflammatory markers Anticoagulation per protocol ID will sign off. Please call with questions. Zina Mario MD, FACP [facility] O: [phone] F: [phone] Subjective Date of service: 07/13/21 Interval history: Afebrile. On oxygen. Objective - Exam Narrative Exam: Physical Exam (reviewed in chart to minimize risk of transmission) Constitutional: deferred Head, Ears, Nose: deferred Eyes: deferred Neck: deferred Oral: deferred Cardiovascular: deferred Respiratory: deferred GI: deferred Musculoskeletal: deferred Skin: deferred Hem/Lymphatic: deferred Psych: deferred Neurological: deferred - Constitutional Vitals: Vital Signs Temp Pulse Resp BP Pulse Ox 97.8 F 74 29 H 165/84 93 07/13/21 08:00 07/13/21 16:01 07/13/21 16:01 07/13/21 16:01 07/13/21 16:01 Temperature -Last 24 Hours Temperature 97.8 F - Labs CBC & Chem 7: 07/13/21 04:25 07/13/21 04:25 Labs: Abnormal lab results 07/13/21 07/13/21 Range/Units 04:25 04:25 MCV 96 H (84-94) fl Lymph % (Auto) 12.4 L (13.4-35.0) % [place] % (Auto) 14.5 H (0.0-7.3) % Lymph # (Auto) 0.8 L (1.2-5.4) K/mm3 [place] # (Auto) 0.9 H (0.0-0.8) K/mm3 Seg Neutrophils % 72.9 H (40.0-70.0) % BUN 43 H (9-20) mg/dL Glucose 130 H (75-100) mg/dL AST 156 H (5-40) units/L ALT 164 H (7-56) units/L Albumin 3.2 L (3.9-5) g/dL
[2021-07-13] MEDS: cefTRIAXone/NS 2 GM/100 ML 2 GM/100 ML BAG IV SCH (23:32)
[2021-07-13] MEDS: HEPARIN 5,000 UNIT/1 ML VIAL SUB-Q SCH (23:36)
[2021-07-14] MEDS: HEPARIN 5,000 UNIT/1 ML VIAL SUB-Q SCH ×4 (05:27→21:54)
[2021-07-14 06:54] LABS: Basophils % (Auto) 0.1 % (0.0-1.8); Hematocrit 38.5 % (35.5-45.6); Hemoglobin 12.4 gm/dl (11.8-15.2); Lymphocytes # (Auto) 0.6 K/mm3 (1.2-5.4); Lymphocytes % (Auto) 8.1 % (13.4-35.0); Mean Corpuscular HGB Conc 32 % (32-34); Mean Corpuscular Volume 95 fl (84-94); Monocytes # (Auto) 0.9 K/mm3 (0.0-0.8); Monocytes % (Auto) 13.2 % (0.0-7.3); Platelet Count 233 K/mm3 (140-440); Red Blood Count 4.05 M/mm3 (3.65-5.03)
[2021-07-14 07:27] LABS: Alanine Aminotransferase 177 units/L (7-56); Albumin 3.1 g/dL (3.9-5); BUN/Creatinine Ratio 41; Blood Urea Nitrogen 45 mg/dL (9-20); Hemolysis Index 3
--- NOTE | 2021-07-14 08:12 | Progress Note ---
Assessment and Plan Assessment and plan: 61-year-old male, no past medical history, presents with Covid-like symptoms for the last 2 weeks. Sent from urgent care due to O2 sat of 89%. ROS positive for fever, chills, nausea, vomiting, diarrhea, cough, shortness of breath, loss of smell and taste, generalized weakness. He was negative for flu and COVID-19 test at that time add a different urgent care facility 4 days ago and was given a prescription for amoxicillin and Medrol Dosepak to treat bronchitis. Patient has not received a COVID-19 vaccine. --acute on chronic respiratory failure with hypoxia Supplemental oxygen currently on 3 L/min. De-escalate as patient tolerates. If worsens will consider pulmonology consult. Chest x-ray with bilateral patchy opacities. Inflammatory markers elevated. Procalcitonin is elevated 0.4. Blood cultures, sputum culture DuoNebs scheduled and as needed Decadron 6 mg IV x10-day total to therapy Azithromycin IV/ceftriaxone IV initiated Remdesivir not indicated per infectious disease --COVID 10 Pneumonia [place]ms PCR test positive Follow inflammatory markers ID following --Bilateral Pneumonia Procalcitonin is high Continue antibiotics 5 days of Rocephin and 3 days of Zithromax Home O2 evaluation --Transaminitis Probably due to underlying COVID-19 Trending down --DVT prophylaxis Lovenox 40 subcu daily Code Status: DNR/AND Diet: Regular diet VTE PPx: Lovenox 40 mg subcu daily We will closely monitor the patient and adjust management as needed Plan of care reviewed with the patient and his nurse Follow consultants and recommendations Dispo: Pending clinical improvement and de-escalation of oxygen. COVID +. Started on all guidelines directed therapies. ID following. Had extension into extensive discussion should patient deteriorate. Patient states that he would not like any aggressive measures in the form of CPR or intubation with subsequent mechanical ventilation. Discussed this at length with the patient who was firm in his decision. Paperwork signed for DNR/AND. History Interval history: I have seen and examined the patient at the bedside this morning Strict isolation precautions, PPE protocols followed per COVID-19 guidelines Patient complains of mild shortness of breath Obese BMI of 37.0 Vital signs noted Hospitalist Physical - Constitutional Vitals: Temp Pulse Resp BP Pulse Ox 97.3 F L 89 22 123/50 78 L 08/17/21 05:18 07/14/21 05:18 07/14/21 05:18 07/14/21 05:18 07/14/21 05:18 General appearance: Present: no acute distress, well-nourished - EENT Eyes: Present: PERRL, EOM intact - Neck Neck: Present: supple, normal ROM - Respiratory Respiratory effort: normal Respiratory: bilateral: diminished, rhonchi, negative: rales, wheezing - Cardiovascular Rhythm: regular Heart Sounds: Present: S1 & S2 - Extremities Extremities: no ischemia, No edema - Abdominal General gastrointestinal: soft, non-tender, non-distended, normal bowel sounds - Integumentary Integumentary: Present: clear, warm - Psychiatric Psychiatric: appropriate mood/affect, cooperative - Neurologic Neurologic: CNII-XII intact, moves all extremities HEART Score - HEART Score Troponin: Troponin T < 0.010 ng/mL (0.00-0.029) 07/11/21 15:40 Results - Labs CBC & Chem 7: 07/14/21 05:44 07/14/21 05:44 Labs: Laboratory Last Values WBC 7.2 K/mm3 (4.5-11.0) 07/14/21 05:44 RBC 4.05 M/mm3 (3.65-5.03) 07/14/21 05:44 Hgb 12.4 gm/dl (11.8-15.2) 07/14/21 05:44 Hct 38.5 % (35.5-45.6) 07/14/21 05:44 MCV 95 fl (84-94) H 07/14/21 05:44 MCH 31 pg (28-32) 07/14/21 05:44 MCHC 32 % (32-34) 07/14/21 05:44 RDW 13.0 % (13.2-15.2) L 07/14/21 05:44 Plt Count 233 K/mm3 (140-440) 07/14/21 05:44 Lymph % (Auto) 8.1 % (13.4-35.0) L 07/14/21 05:44 [place] % (Auto) 13.2 % (0.0-7.3) H 07/14/21 05:44 Eos % (Auto) 0.0 % (0.0-4.3) 07/14/21 05:44 Baso % (Auto) 0.1 % (0.0-1.8) 07/14/21 05:44 Lymph # (Auto) 0.6 K/mm3 (1.2-5.4) L 07/14/21 05:44 [place] # (Auto) 0.9 K/mm3 (0.0-0.8) H 07/14/21 05:44 Eos # (Auto) 0.0 K/mm3 (0.0-0.4) 07/14/21 05:44 Baso # (Auto) 0.0 K/mm3 (0.0-0.1) 07/14/21 05:44 Seg Neutrophils % 78.6 % (40.0-70.0) H 07/14/21 05:44 Seg Neutrophils # 5.6 K/mm3 (1.8-7.7) 07/14/21 05:44 D-Dimer 398.85 ng/mlDDU (0-234) H 07/14/21 05:44 Sodium 142 mmol/L (137-145) 07/14/21 05:44 Potassium 4.3 mmol/L (3.6-5.0) 07/14/21 05:44 Chloride 102.8 mmol/L (98-107) 07/14/21 05:44 Carbon Dioxide 30 mmol/L (22-30) 07/14/21 05:44 Anion Gap 14 mmol/L 07/14/21 05:44 BUN 45 mg/dL (9-20) H 07/14/21 05:44 Creatinine 1.1 mg/dL (0.8-1.3) 07/14/21 05:44 Estimated GFR > 60 ml/min 07/14/21 05:44 BUN/Creatinine Ratio 41 % 07/14/21 05:44 Glucose 112 mg/dL (75-100) H 07/14/21 05:44 Calcium 9.0 mg/dL (8.4-10.2) 07/14/21 05:44 Magnesium 2.60 mg/dL (1.7-2.3) H 07/11/21 15:40 Ferritin 7037.0 ng/mL (30.0-300.0) H 07/14/21 05:44 Total Bilirubin 1.60 mg/dL (0.1-1.2) H 07/14/21 05:44 AST 166 units/L (5-40) H 07/14/21 05:44 ALT 177 units/L (7-56) H 07/14/21 05:44 Alkaline Phosphatase 84 units/L (35-129) 07/14/21 05:44 Lactate Dehydrogenase 755 units/L (91-180) H 07/14/21 05:44 Troponin T < 0.010 ng/mL (0.00-0.029) 07/11/21 15:40 C-Reactive Protein 9.50 mg/dL (0.00-1.30) H 07/14/21 05:44 Total Protein 7.2 g/dL (6.3-8.2) 07/14/21 05:44 Albumin 3.1 g/dL (3.9-5) L 07/14/21 05:44 Albumin/Globulin Ratio 0.8 % 07/14/21 05:44 Lipase 60 units/L (13-60) 07/11/21 15:40 Procalcitonin 0.45 ng/mL (<0.15) 07/12/21 00:16 Coronavirus (PCR) Positive (Negative) A 07/11/21 10:47 Microbiology: Microbiology 07/12/21 00:16 Peripheral/Venous Blood Culture - Preliminary NO GROWTH AFTER 48 HOURS 07/12/21 00:12 Peripheral/Venous Blood Culture - Preliminary NO GROWTH AFTER 48 HOURS Allen/IV: Voiding Method Toilet Active Medications - Current Medications Current Medications: Generic Name Dose Route Start Last Admin Trade Name Freq PRN Reason Stop Dose Admin Acetaminophen 650 mg 07/11/21 23:07 Acetaminophen 325 Mg Tab PO Q4H PRN Pain MILD(1-3)/Fever >100.5/HOPPER Albuterol 2 puff 07/12/21 14:29 Albuterol 8.5 Gm Mdi Inhalation IH Q6HRT PRN Shortness Of Breath Dexamethasone 6 mg 07/12/21 10:00 07/13/21 11:32 Dexamethasone 4 Mg/Ml Vial IV 07/20/21 10:01 6 mg DAILY DARY Administration Heparin Sodium (Porcine) 5,000 unit 07/12/21 06:00 07/14/21 05:27 Heparin 5,000 Unit/1 Ml Vial SUB-Q 5,000 unit Q8HR DARY Administration Hydralazine HCl 10 mg 07/11/21 23:09 Hydralazine 20 Mg/1 Ml Inj IV Q6H PRN Blood Pressure Ceftriaxone Sodium 2 gm in 100 mls @ 200 mls/hr 07/12/21 23:00 07/14/21 03:08 Rocephin/Ns 2 Gm/100 Ml IV Infused Q24H DARY Infusion Protocol Azithromycin 500 mg in 250 mls @ 250 mls/hr 07/12/21 23:00 07/14/21 03:09 Zithromax/Ns IV Infused Q24H DARY Infusion Protocol Ondansetron HCl 4 mg 07/11/21 23:07 07/13/21 23:59 Ondansetron 4 Mg/2 Ml Inj IV 4 mg Q8H PRN Administration Nausea And Vomiting Sodium Chloride 10 ml 07/12/21 10:00 07/13/21 23:34 Sodium Chloride 0.9% 10 Ml Flush Syringe IV 10 ml BID DARY Administration Sodium Chloride 10 ml 07/11/21 23:07 Sodium Chloride 0.9% 10 Ml Flush Syringe IV PRN PRN LINE FLUSH
--- NOTE | 2021-07-14 08:36 | XRay Report ---
XR chest 1V ap INDICATION / CLINICAL INFORMATION: covid 19 pna. COMPARISON: 07/11/2021 FINDINGS: SUPPORT DEVICES: None HEART /PULMONARY VASCULATURE: Unchanged. LUNGS / PLEURA: Low lung volumes remain. Patchy bilateral airspace opacities appear slightly increase d from prior study. No pneumothorax. IMPRESSION: 1. Slight increase in pulmonary airspace disease. Signer Name: Fady Miller MD Signed: 07/14/2021 8:31 AM Workstation Name: [id number]
[2021-07-14] MEDS: dexAMETHasone 4 MG/ML VIAL IV SCH (09:51)
[2021-07-14] MEDS: cefTRIAXone/NS 2 GM/100 ML 2 GM/100 ML BAG IV SCH (21:59)
[2021-07-14] MEDS: AZITHROMYCIN/NS 500 MG/250 ML 500 MG/250 ML BAG IV SCH (22:47)
[2021-07-15] MEDS: FAMOTIDINE 20 MG/2 ML INJ IV SCH ×2 (00:15→10:03)
[2021-07-15] MEDS: HEPARIN 5,000 UNIT/1 ML VIAL SUB-Q SCH ×3 (05:38→22:10)
--- NOTE | 2021-07-15 09:00 | Progress Note ---
Assessment and Plan Assessment and plan: 61-year-old male, no past medical history, presents with Covid-like symptoms for the last 2 weeks. Sent from urgent care due to O2 sat of 89%. ROS positive for fever, chills, nausea, vomiting, diarrhea, cough, shortness of breath, loss of smell and taste, generalized weakness. He was negative for flu and COVID-19 test at that time add a different urgent care facility 4 days ago and was given a prescription for amoxicillin and Medrol Dosepak to treat bronchitis. Patient has not received a COVID-19 vaccine. --acute on chronic respiratory failure with hypoxia Supplemental oxygen currently on 3 L/min. De-escalate as patient tolerates. If worsens will consider pulmonology consult. Chest x-ray with bilateral patchy opacities. Inflammatory markers elevated. Procalcitonin is elevated 0.4. Blood cultures, sputum culture DuoNebs scheduled and as needed Decadron 6 mg IV x10-day total to therapy Azithromycin IV/ceftriaxone IV initiated Remdesivir not indicated per infectious disease --COVID 10 Pneumonia Simms PCR test positive Follow inflammatory markers ID following --Bilateral Pneumonia Procalcitonin is high Continue antibiotics 5 days of Rocephin, today 4/5 last dose tomorrow 3 days of Zithromax completed Home O2 evaluation --Transaminitis Probably due to underlying COVID-19 Trending down --DVT prophylaxis Lovenox 40 subcu daily Code Status: DNR/AND Diet: Regular diet VTE PPx: Lovenox 40 mg subcu daily We will closely monitor the patient and adjust management as needed Plan of care reviewed with the patient and his nurse Follow consultants and recommendations Possible discharge home tomorrow after completing dose of IV Rocephin per ID Resting room air and 6-minute walk room air O2 sats evaluation prior to discharge, for home oxygen as needed Possible discharge home tomorrow if stable Consults and recommendations noted and appreciated Dispo: Possible discharge tomorrow if stable, evaluated for home oxygen. DC planning per case management History Interval history: I seen and examined the patient at the bedside this morning Patient's chart and medications reviewed Strict isolation precautions, PPE protocols and other COVID-19 guidelines follow while evaluating the patient Patient is on 2 L of nasal cannula Feels slightly better Anxious to go home Vital signs noted Hospitalist Physical - Constitutional Vitals: Temp Pulse Resp BP Pulse Ox 97.6 F 86 20 144/70 83 L 07/15/21 04:53 07/15/21 04:53 07/15/21 04:53 07/15/21 04:53 07/15/21 04:53 General appearance: Present: no acute distress, mild distress, well-nourished - EENT Eyes: Present: PERRL, EOM intact - Neck Neck: Present: supple, normal ROM - Respiratory Respiratory effort: normal Respiratory: bilateral: diminished, rhonchi, negative: rales, wheezing - Cardiovascular Rhythm: regular Heart Sounds: Present: S1 & S2 - Extremities Extremities: no ischemia, No edema - Abdominal General gastrointestinal: soft, non-tender, non-distended, normal bowel sounds - Integumentary Integumentary: Present: clear, warm - Psychiatric Psychiatric: appropriate mood/affect, cooperative - Neurologic Neurologic: moves all extremities, other HEART Score - HEART Score Troponin: Troponin T < 0.010 ng/mL (0.00-0.029) 07/11/21 15:40 Results - Labs CBC & Chem 7: 07/14/21 05:44 07/14/21 05:44 Labs: Laboratory Last Values WBC 7.2 K/mm3 (4.5-11.0) 07/14/21 05:44 RBC 4.05 M/mm3 (3.65-5.03) 07/14/21 05:44 Hgb 12.4 gm/dl (11.8-15.2) 07/14/21 05:44 Hct 38.5 % (35.5-45.6) 07/14/21 05:44 MCV 95 fl (84-94) H 07/14/21 05:44 MCH 31 pg (28-32) 07/14/21 05:44 MCHC 32 % (32-34) 07/14/21 05:44 RDW 13.0 % (13.2-15.2) L 07/14/21 05:44 Plt Count 233 K/mm3 (140-440) 07/14/21 05:44 Lymph % (Auto) 8.1 % (13.4-35.0) L 07/14/21 05:44 [place] % (Auto) 13.2 % (0.0-7.3) H 07/14/21 05:44 Eos % (Auto) 0.0 % (0.0-4.3) 07/14/21 05:44 Baso % (Auto) 0.1 % (0.0-1.8) 07/14/21 05:44 Lymph # (Auto) 0.6 K/mm3 (1.2-5.4) L 07/14/21 05:44 [place] # (Auto) 0.9 K/mm3 (0.0-0.8) H 07/14/21 05:44 Eos # (Auto) 0.0 K/mm3 (0.0-0.4) 07/14/21 05:44 Baso # (Auto) 0.0 K/mm3 (0.0-0.1) 07/14/21 05:44 Seg Neutrophils % 78.6 % (40.0-70.0) H 07/14/21 05:44 Seg Neutrophils # 5.6 K/mm3 (1.8-7.7) 07/14/21 05:44 D-Dimer 398.85 ng/mlDDU (0-234) H 07/14/21 05:44 Sodium 142 mmol/L (137-145) 07/14/21 05:44 Potassium 4.3 mmol/L (3.6-5.0) 07/14/21 05:44 Chloride 102.8 mmol/L (98-107) 07/14/21 05:44 Carbon Dioxide 30 mmol/L (22-30) 07/14/21 05:44 Anion Gap 14 mmol/L 07/14/21 05:44 BUN 45 mg/dL (9-20) H 07/14/21 05:44 Creatinine 1.1 mg/dL (0.8-1.3) 07/14/21 05:44 Estimated GFR > 60 ml/min 07/14/21 05:44 BUN/Creatinine Ratio 41 % 07/14/21 05:44 Glucose 112 mg/dL (75-100) H 07/14/21 05:44 Calcium 9.0 mg/dL (8.4-10.2) 07/14/21 05:44 Magnesium 2.60 mg/dL (1.7-2.3) H 07/11/21 15:40 Ferritin 7037.0 ng/mL (30.0-300.0) H 07/14/21 05:44 Total Bilirubin 1.60 mg/dL (0.1-1.2) H 07/14/21 05:44 AST 166 units/L (5-40) H 07/14/21 05:44 ALT 177 units/L (7-56) H 07/14/21 05:44 Alkaline Phosphatase 84 units/L (35-129) 07/14/21 05:44 Lactate Dehydrogenase 755 units/L (91-180) H 07/14/21 05:44 Troponin T < 0.010 ng/mL (0.00-0.029) 07/11/21 15:40 C-Reactive Protein 9.50 mg/dL (0.00-1.30) H 07/14/21 05:44 Total Protein 7.2 g/dL (6.3-8.2) 07/14/21 05:44 Albumin 3.1 g/dL (3.9-5) L 07/14/21 05:44 Albumin/Globulin Ratio 0.8 % 07/14/21 05:44 Lipase 60 units/L (13-60) 07/11/21 15:40 Procalcitonin 0.45 ng/mL (<0.15) 07/12/21 00:16 Coronavirus (PCR) Positive (Negative) A 07/11/21 10:47 Microbiology: Microbiology 07/12/21 00:16 Peripheral/Venous Blood Culture - Preliminary NO GROWTH AFTER 72 HOURS 07/12/21 00:12 Peripheral/Venous Blood Culture - Preliminary NO GROWTH AFTER 72 HOURS Allen/IV: Voiding Method Toilet Active Medications - Current Medications Current Medications: Generic Name Dose Route Start Last Admin Trade Name Freq PRN Reason Stop Dose Admin Acetaminophen 650 mg 07/11/21 23:07 Acetaminophen 325 Mg Tab PO Q4H PRN Pain MILD(1-3)/Fever >100.5/HOPPER Albuterol 2 puff 07/12/21 14:29 Albuterol 8.5 Gm Mdi Inhalation IH Q6HRT PRN Shortness Of Breath Dexamethasone 6 mg 07/12/21 10:00 07/14/21 09:51 Dexamethasone 4 Mg/Ml Vial IV 07/20/21 10:01 6 mg DAILY DARY Administration Famotidine 20 mg 07/14/21 23:45 07/15/21 00:15 Famotidine 20 Mg/2 Ml Inj IV 20 mg BID DARY Administration Heparin Sodium (Porcine) 5,000 unit 07/12/21 06:00 07/15/21 05:38 Heparin 5,000 Unit/1 Ml Vial SUB-Q 5,000 unit Q8HR DARY Administration Hydralazine HCl 10 mg 07/11/21 23:09 Hydralazine 20 Mg/1 Ml Inj IV Q6H PRN Blood Pressure Ceftriaxone Sodium 2 gm in 100 mls @ 200 mls/hr 07/12/21 23:00 07/14/21 21:59 Rocephin/Ns 2 Gm/100 Ml IV 07/16/21 23:29 200 mls/hr Q24H DARY Administration Protocol Ondansetron HCl 4 mg 07/11/21 23:07 07/13/21 23:59 Ondansetron 4 Mg/2 Ml Inj IV 4 mg Q8H PRN Administration Nausea And Vomiting Sodium Chloride 10 ml 07/12/21 10:00 07/14/21 21:56 Sodium Chloride 0.9% 10 Ml Flush Syringe IV 10 ml BID DARY Administration Sodium Chloride 10 ml 07/11/21 23:07 Sodium Chloride 0.9% 10 Ml Flush Syringe IV PRN PRN LINE FLUSH
[2021-07-15] MEDS: dexAMETHasone 4 MG/ML VIAL IV SCH (10:02)
[2021-07-15] MEDS ORDERED: cefTRIAXone/NS 2 GM/100 ML 2 GM/100 ML BAG IV SCH (17:00)
[2021-07-15] MEDS: FAMOTIDINE 20 MG TAB PO SCH (22:10)
[2021-07-16] MEDS: HEPARIN 5,000 UNIT/1 ML VIAL SUB-Q SCH ×3 (05:36→23:32)
--- NOTE | 2021-07-16 07:57 | Discharge Summary ---
Providers - Providers Date of Admission: 07/13/21 08:00 Date of discharge: 07/21/21 Attending physician: AUGUST NAGEL 07/11/21 23:07 Consult to Physician [CONS] Routine Comment: Consulting Provider: LORETO OLSON Physician Instructions: Reason For Exam: Covid Primary care physician: [employer] LEADER Hospitalization Reason for admission: Fever/shortness of breath/pneumonia Condition: Stable Pertinent studies: X-ray x2 Hospital course: 61-year-old male, no past medical history, presents with Covid-like symptoms for the last 2 weeks. Sent from urgent care due to O2 sat of 89%. ROS positive for fever, chills, nausea, vomiting, diarrhea, cough, shortness of breath, loss of smell and taste, generalized weakness. Patient was admitted as PUI , managed empirically Simms PCR test came back positive with severe COVID-19 pneumonia , evaluated by ID , managed per COVID-19 protocols , recommended complete treatment of pneumonia with 5 days of Rocephin and 3 days of Zithromax , last dose of Rocephin today , which will be completed prior to discharge , Patient was severely hypoxemic requiring supplemental oxygen , home oxygen evaluation was being done today , home oxygen set up as indicated Case management has evaluated the patient , and assisting with discharge planning . Today patient is comfortable no new complaints vital signs stable physical examination prior to discharge did not show any new changes currently on 2 to 3 L of nasal cannula oxygen,, Patient will receive his last dose of Rocephin today and will be discharged in stable Discharge diagnosis: --acute on chronic respiratory failure with hypoxia Supplemental oxygen currently on 3 L/min. De-escalate as patient tolerates. If worsens will consider pulmonology consult. Chest x-ray with bilateral patchy opacities. Inflammatory markers elevated. Procalcitonin is elevated 0.4. Blood cultures, sputum culture DuoNebs scheduled and as needed Decadron 6 mg IV x10-day total to therapy Azithromycin IV/ceftriaxone IV initiated Remdesivir not indicated per infectious disease --COVID 10 Pneumonia Simms PCR test positive Follow inflammatory markers ID following --Bilateral Pneumonia Procalcitonin is high Continue antibiotics 5 days of Rocephin, today 4/5 last dose tomorrow 3 days of Zithromax completed Home O2 evaluation --Transaminitis Probably due to underlying COVID-19 Trending down --Obesity; BMI 37.0 Advised weight reduction when medically stable --Code Status: DNR/AND Diet: Regular diet VTE PPx: Lovenox 40 mg subcu daily Stable at discharge Home oxygen evaluation prior to discharge Disposition: HOME HEALTH CARE SERVICE Final Discharge Diagnosis (Prints w/discharge instructions): Acute on chronic respiratory failure with hypoxia. Home oxygen evaluation at discharge. COVID- 19 pneumonia. Bilateral pneumonia[completed antibiotics]. Transaminitis[Covid related trending down]. DNR status. Obesity BMI 37.0[advised weight reduction when stable] Time spent for discharge: 35 min Core Measure Documentation - Palliative Care Palliative Care/ Comfort Measures: Not Applicable - Core Measures Any of the following diagnoses?: none Exam - Constitutional Vitals: Temp Pulse Resp BP Pulse Ox 97.8 F 84 18 130/63 75 L 07/16/21 03:44 07/16/21 03:44 07/16/21 03:44 07/16/21 03:44 07/16/21 03:44 General appearance: Present: no acute distress, well-nourished, obese - EENT Eyes: Present: PERRL, EOM intact - Neck Neck: Present: supple, normal ROM - Respiratory Respiratory effort: normal Respiratory: bilateral: diminished, negative: rales, rhonchi, wheezing - Cardiovascular Rhythm: regular Heart Sounds: Present: S1 & S2 - Extremities Extremities: no ischemia, No edema - Abdominal General gastrointestinal: Present: soft, non-tender, non-distended - Integumentary Integumentary: Present: clear, warm - Musculoskeletal Musculoskeletal: strength equal bilaterally - Psychiatric Psychiatric: appropriate mood/affect - Neurologic Neurologic: moves all extremities Plan Activity: advance as tolerated Diet: other (Cardiac diet) Additional Instructions: Patient advised to follow isolation precautions PPE protocols, masking, safe social distancing and other COVID-19 guidelines as instructed by the discharge nurse. If you have worsening symptoms contact MD or go to emergency room as needed. Use home oxygen as needed Follow up with: PRIMARY CARE, [Primary Care Provider] - 3-5 Days BRODIE CHRISTENSEN MD [Staff Physician] - 14 Days Prescriptions: LORazepam [Ativan] 1 mg PO BID #60 tab Dexamethasone 6 mg PO DAILY #5 tablet Morphine [Morphine ORAL SOLN 10 MG/5 ML] 10 mg PO Q4HR #30 ml Famotidine [Pepcid] 20 mg PO BID #30 tablet Prednisone [predniSONE 10 mg (6-Day Pack, 21 Tabs)] 10 mg PO .TAPER #1 tab.ds.pk Albuterol Mdi (or & Nicu Only) [ProAir HFA Inhaler] 2 puff IH QID PRN #8.5 gram PRN Reason: Shortness Of Breath Ascorbic Acid [Vitamin C] 1,000 mg PO DAILY #14 tablet Ascorbic Acid [Vitamin C chew] 500 mg PO BID #30 tab.chew Cholecalciferol Vit D3 [Vitamin D3 1,000 UNIT TAB] 1,000 unit PO QDAY #14 tablet Zinc Sulfate [Zinc] 220 mg PO BID #30 tablet Zinc Sulfate [Zinc] 220 mg PO BID #28 tablet Azithromycin [Zithromax Z-PAT] 250 mg PO DAILY #6 tablet
[2021-07-16] MEDS: DEXAMETHASONE 4 MG TAB PO SCH (09:44)
[2021-07-16] MEDS: FAMOTIDINE 20 MG TAB PO SCH ×2 (09:44→23:31)
[2021-07-16] MEDS ORDERED: cefTRIAXone/NS 2 GM/100 ML 2 GM/100 ML BAG IV SCH (10:00)
--- NOTE | 2021-07-16 21:34 | Progress Note ---
Assessment and Plan Assessment and plan: 61-year-old male, no past medical history, presents with Covid-like symptoms for the last 2 weeks. Sent from urgent care due to O2 sat of 89%. ROS positive for fever, chills, nausea, vomiting, diarrhea, cough, shortness of breath, loss of smell and taste, generalized weakness. He was negative for flu and COVID-19 test at that time add a different urgent care facility 4 days ago and was given a prescription for amoxicillin and Medrol Dosepak to treat bronchitis. Patient has not received a COVID-19 vaccine. --acute on chronic respiratory failure with hypoxia Today patient is requiring 10 to 15 L of nasal cannula oxygen Initially plans were made to discharge the patient on 3 to 5 L, however patient's oxygen requirement, Suddenly jumped to 10 to 15 L today Continue high flow oxygen, titrate and wean as tolerated Continue, DuoNebs scheduled and as needed Decadron 6 mg IV x10-day total to therapy --COVID 10 Pneumonia Simms PCR test positive Follow inflammatory markers ID following --Bilateral Pneumonia Procalcitonin is high Continue antibiotics 5 days of Rocephin, completed 3 days of Zithromax completed Home O2 evaluation --Transaminitis Probably due to underlying COVID-19 Trending down --DVT prophylaxis Lovenox 40 subcu daily Code Status: DNR/AND Diet: Regular diet VTE PPx: Lovenox 40 mg subcu daily We will closely monitor the patient and adjust management as needed Plan of care reviewed with the patient and his nurse Follow consultants and recommendations 07/16/21; initially patient was being discharged on 3 to 5 L nasal cannula oxygen However patient suddenly became hypoxemic requiring 10 L-15 L high flow nasal cannula oxygen Discharge was held, closely monitor, wean as tolerated Follow clinically and discharge when patient is stable History Interval history: I have seen and examined the patient at the bedside Patient's chart and medications reviewed Patient was initially doing well for discharge As we are planning to discharge patient suddenly became short of breath requiring 10 to 15 L of nasal cannula oxygen Prior to that he was saturating well between 3 to 5 L Continue high flow oxygen, wean and titrate as tolerated Vital signs noted Hospitalist Physical - Constitutional Vitals: Temp Pulse Resp BP Pulse Ox 97.5 F L 95 H 28 H 129/54 91 07/16/21 09:55 07/16/21 09:55 07/16/21 09:55 07/16/21 09:55 07/16/21 20:28 General appearance: Present: mild distress, well-nourished, obese, other (Requiring high-flow nasal cannula 10 to 15 L) - EENT Eyes: Present: PERRL, EOM intact - Neck Neck: Present: supple, normal ROM - Respiratory Respiratory effort: normal Respiratory: bilateral: diminished, rhonchi, negative: rales, wheezing - Cardiovascular Rhythm: regular Heart Sounds: Present: S1 & S2 - Extremities Extremities: no ischemia, No edema - Abdominal General gastrointestinal: soft, non-tender, non-distended, normal bowel sounds - Integumentary Integumentary: Present: clear, warm - Psychiatric Psychiatric: appropriate mood/affect, cooperative - Neurologic Neurologic: CNII-XII intact, moves all extremities HEART Score - HEART Score Troponin: Troponin T < 0.010 ng/mL (0.00-0.029) 07/11/21 15:40 Results - Labs CBC & Chem 7: 07/14/21 05:44 07/14/21 05:44 Labs: Laboratory Last Values WBC 7.2 K/mm3 (4.5-11.0) 07/14/21 05:44 RBC 4.05 M/mm3 (3.65-5.03) 07/14/21 05:44 Hgb 12.4 gm/dl (11.8-15.2) 07/14/21 05:44 Hct 38.5 % (35.5-45.6) 07/14/21 05:44 MCV 95 fl (84-94) H 07/14/21 05:44 MCH 31 pg (28-32) 07/14/21 05:44 MCHC 32 % (32-34) 07/14/21 05:44 RDW 13.0 % (13.2-15.2) L 07/14/21 05:44 Plt Count 233 K/mm3 (140-440) 07/14/21 05:44 Lymph % (Auto) 8.1 % (13.4-35.0) L 07/14/21 05:44 [place] % (Auto) 13.2 % (0.0-7.3) H 07/14/21 05:44 Eos % (Auto) 0.0 % (0.0-4.3) 07/14/21 05:44 Baso % (Auto) 0.1 % (0.0-1.8) 07/14/21 05:44 Lymph # (Auto) 0.6 K/mm3 (1.2-5.4) L 07/14/21 05:44 [place] # (Auto) 0.9 K/mm3 (0.0-0.8) H 07/14/21 05:44 Eos # (Auto) 0.0 K/mm3 (0.0-0.4) 07/14/21 05:44 Baso # (Auto) 0.0 K/mm3 (0.0-0.1) 07/14/21 05:44 Seg Neutrophils % 78.6 % (40.0-70.0) H 07/14/21 05:44 Seg Neutrophils # 5.6 K/mm3 (1.8-7.7) 07/14/21 05:44 D-Dimer 398.85 ng/mlDDU (0-234) H 07/14/21 05:44 Sodium 142 mmol/L (137-145) 07/14/21 05:44 Potassium 4.3 mmol/L (3.6-5.0) 07/14/21 05:44 Chloride 102.8 mmol/L (98-107) 07/14/21 05:44 Carbon Dioxide 30 mmol/L (22-30) 07/14/21 05:44 Anion Gap 14 mmol/L 07/14/21 05:44 BUN 45 mg/dL (9-20) H 07/14/21 05:44 Creatinine 1.1 mg/dL (0.8-1.3) 07/14/21 05:44 Estimated GFR > 60 ml/min 07/14/21 05:44 BUN/Creatinine Ratio 41 % 07/14/21 05:44 Glucose 112 mg/dL (75-100) H 07/14/21 05:44 Calcium 9.0 mg/dL (8.4-10.2) 07/14/21 05:44 Magnesium 2.60 mg/dL (1.7-2.3) H 07/11/21 15:40 Ferritin 7037.0 ng/mL (30.0-300.0) H 07/14/21 05:44 Total Bilirubin 1.60 mg/dL (0.1-1.2) H 07/14/21 05:44 AST 166 units/L (5-40) H 07/14/21 05:44 ALT 177 units/L (7-56) H 07/14/21 05:44 Alkaline Phosphatase 84 units/L (35-129) 07/14/21 05:44 Lactate Dehydrogenase 755 units/L (91-180) H 07/14/21 05:44 Troponin T < 0.010 ng/mL (0.00-0.029) 07/11/21 15:40 C-Reactive Protein 9.50 mg/dL (0.00-1.30) H 07/14/21 05:44 Total Protein 7.2 g/dL (6.3-8.2) 07/14/21 05:44 Albumin 3.1 g/dL (3.9-5) L 07/14/21 05:44 Albumin/Globulin Ratio 0.8 % 07/14/21 05:44 Lipase 60 units/L (13-60) 07/11/21 15:40 Procalcitonin 0.45 ng/mL (<0.15) 07/12/21 00:16 Coronavirus (PCR) Positive (Negative) A 07/11/21 10:47 Microbiology: Microbiology 07/12/21 00:16 Peripheral/Venous Blood Culture - Preliminary NO GROWTH AFTER 4 DAYS 07/12/21 00:12 Peripheral/Venous Blood Culture - Preliminary NO GROWTH AFTER 4 DAYS Allen/IV: Voiding Method Toilet Active Medications - Current Medications Current Medications: Generic Name Dose Route Start Last Admin Trade Name Rolandoq PRN Reason Stop Dose Admin Acetaminophen 650 mg 07/11/21 23:07 Acetaminophen 325 Mg Tab PO Q4H PRN Pain MILD(1-3)/Fever >100.5/HOPPER Albuterol 2 puff 07/12/21 14:29 Albuterol 8.5 Gm Mdi Inhalation IH Q6HRT PRN Shortness Of Breath Dexamethasone 6 mg 07/16/21 10:00 07/16/21 09:44 Dexamethasone 4 Mg Tab PO 07/20/21 12:00 6 mg DAILY DARY Administration Famotidine 20 mg 07/15/21 22:00 07/16/21 09:44 Famotidine 20 Mg Tab PO 20 mg BID DARY Administration Heparin Sodium (Porcine) 5,000 unit 07/12/21 06:00 07/16/21 14:48 Heparin 5,000 Unit/1 Ml Vial SUB-Q Not Given Q8HR DARY Hydralazine HCl 10 mg 07/11/21 23:09 Hydralazine 20 Mg/1 Ml Inj IV Q6H PRN Blood Pressure Ondansetron HCl 4 mg 07/11/21 23:07 07/13/21 23:59 Ondansetron 4 Mg/2 Ml Inj IV 4 mg Q8H PRN Administration Nausea And Vomiting Sodium Chloride 10 ml 07/12/21 10:00 07/16/21 09:46 Sodium Chloride 0.9% 10 Ml Flush Syringe IV 10 ml BID DARY Administration Sodium Chloride 10 ml 07/11/21 23:07 Sodium Chloride 0.9% 10 Ml Flush Syringe IV PRN PRN LINE FLUSH
[2021-07-17] MEDS: HEPARIN 5,000 UNIT/1 ML VIAL SUB-Q SCH ×3 (07:29→22:57)
[2021-07-17] MEDS: FAMOTIDINE 20 MG TAB PO SCH ×2 (09:37→22:56)
[2021-07-17] MEDS: DEXAMETHASONE 4 MG TAB PO SCH (09:37)
--- NOTE | 2021-07-17 14:18 | Progress Note ---
Assessment and Plan - Patient Problems (1) Acute on chronic respiratory failure with hypoxia Current Visit: Yes Status: Acute Plan to address problem: High flow supplemental oxygen, pulse oximetry, nebulizer therapy, prone positioning while in bed, supportive care. Pulmonary toilet. (2) Elevated liver enzymes Current Visit: Yes Status: Acute Plan to address problem: Supportive care, suspected secondary to coronavirus infection, (3) Pneumonia Current Visit: Yes Status: Acute Plan to address problem: Pneumonia protocol: IV antibiotic therapy, supplemental oxygen, pulse oximetry, (4) Suspected COVID-19 virus infection Current Visit: Yes Status: Acute Plan to address problem: Coronavirus protocol, supportive care, continue current therapy. (5) DVT prophylaxis Current Visit: Yes Status: Acute Plan to address problem: SCD to bilateral lower extremities while in bed, continue prophylactic anticoagulation (6) Advance care planning Current Visit: Yes Status: Acute Plan to address problem: Disease education conducted, care plan discussed, diagnosis discussed, prognosis discussed, patient is DNR. Patient knowledges understanding and agreement with care plan, +30 minutes. History Interval history: 61 YO Male HD #7 with Acute Hypoxemic Respiratory Failure, Coronavirus Infection, Pneumonia, Transaminitis. Pt reports persistent shortness of breath. Patient denies pain. Patient requests the ability to drink Gatorade in his room. Patient states that he is somewhat more comfortable. Patient remains on high flow supplemental oxygen. No reported nursing events. Hospitalist Physical - Constitutional Vitals: Temp Pulse Resp BP Pulse Ox 97.9 F 102 H 18 135/102 90 07/17/21 11:18 07/17/21 11:18 07/17/21 11:18 07/17/21 11:18 07/17/21 12:20 General appearance: Present: mild distress, well-nourished, obese, other (Requiring high-flow nasal cannula 10 to 15 L) - EENT Eyes: Present: PERRL, EOM intact ENT: hearing intact - Neck Neck: Present: supple - Respiratory Respiratory effort: labored Respiratory: bilateral: diminished, rhonchi - Cardiovascular Rhythm: regular Heart Sounds: Present: S1 & S2 - Extremities Extremities: no ischemia Extremity abnormal: edema Peripheral Pulses: within normal limits - Abdominal General gastrointestinal: soft, non-tender, non-distended - Integumentary Integumentary: Present: clear, dry - Psychiatric Psychiatric: cooperative - Neurologic Neurologic: CNII-XII intact HEART Score - HEART Score Troponin: Troponin T < 0.010 ng/mL (0.00-0.029) 07/11/21 15:40 Results - Labs CBC & Chem 7: 07/14/21 05:44 07/14/21 05:44 Labs: Laboratory Last Values WBC 7.2 K/mm3 (4.5-11.0) 07/14/21 05:44 RBC 4.05 M/mm3 (3.65-5.03) 07/14/21 05:44 Hgb 12.4 gm/dl (11.8-15.2) 07/14/21 05:44 Hct 38.5 % (35.5-45.6) 07/14/21 05:44 MCV 95 fl (84-94) H 07/14/21 05:44 MCH 31 pg (28-32) 07/14/21 05:44 MCHC 32 % (32-34) 07/14/21 05:44 RDW 13.0 % (13.2-15.2) L 07/14/21 05:44 Plt Count 233 K/mm3 (140-440) 07/14/21 05:44 Lymph % (Auto) 8.1 % (13.4-35.0) L 07/14/21 05:44 [place] % (Auto) 13.2 % (0.0-7.3) H 07/14/21 05:44 Eos % (Auto) 0.0 % (0.0-4.3) 07/14/21 05:44 Baso % (Auto) 0.1 % (0.0-1.8) 07/14/21 05:44 Lymph # (Auto) 0.6 K/mm3 (1.2-5.4) L 07/14/21 05:44 [place] # (Auto) 0.9 K/mm3 (0.0-0.8) H 07/14/21 05:44 Eos # (Auto) 0.0 K/mm3 (0.0-0.4) 07/14/21 05:44 Baso # (Auto) 0.0 K/mm3 (0.0-0.1) 07/14/21 05:44 Seg Neutrophils % 78.6 % (40.0-70.0) H 07/14/21 05:44 Seg Neutrophils # 5.6 K/mm3 (1.8-7.7) 07/14/21 05:44 D-Dimer 398.85 ng/mlDDU (0-234) H 07/14/21 05:44 Sodium 142 mmol/L (137-145) 07/14/21 05:44 Potassium 4.3 mmol/L (3.6-5.0) 07/14/21 05:44 Chloride 102.8 mmol/L (98-107) 07/14/21 05:44 Carbon Dioxide 30 mmol/L (22-30) 07/14/21 05:44 Anion Gap 14 mmol/L 07/14/21 05:44 BUN 45 mg/dL (9-20) H 07/14/21 05:44 Creatinine 1.1 mg/dL (0.8-1.3) 07/14/21 05:44 Estimated GFR > 60 ml/min 07/14/21 05:44 BUN/Creatinine Ratio 41 % 07/14/21 05:44 Glucose 112 mg/dL (75-100) H 07/14/21 05:44 Calcium 9.0 mg/dL (8.4-10.2) 07/14/21 05:44 Magnesium 2.60 mg/dL (1.7-2.3) H 07/11/21 15:40 Ferritin 7037.0 ng/mL (30.0-300.0) H 07/14/21 05:44 Total Bilirubin 1.60 mg/dL (0.1-1.2) H 07/14/21 05:44 AST 166 units/L (5-40) H 07/14/21 05:44 ALT 177 units/L (7-56) H 07/14/21 05:44 Alkaline Phosphatase 84 units/L (35-129) 07/14/21 05:44 Lactate Dehydrogenase 755 units/L (91-180) H 07/14/21 05:44 Troponin T < 0.010 ng/mL (0.00-0.029) 07/11/21 15:40 C-Reactive Protein 9.50 mg/dL (0.00-1.30) H 07/14/21 05:44 Total Protein 7.2 g/dL (6.3-8.2) 07/14/21 05:44 Albumin 3.1 g/dL (3.9-5) L 07/14/21 05:44 Albumin/Globulin Ratio 0.8 % 07/14/21 05:44 Lipase 60 units/L (13-60) 07/11/21 15:40 Procalcitonin 0.45 ng/mL (<0.15) 07/12/21 00:16 Coronavirus (PCR) Positive (Negative) A 07/11/21 10:47 Microbiology: Microbiology 07/12/21 00:12 Peripheral/Venous Blood Culture - Final NO GROWTH AFTER 5 DAYS 07/12/21 00:16 Peripheral/Venous Blood Culture - Final NO GROWTH AFTER 5 DAYS Allen/IV: Voiding Method Toilet Active Medications - Current Medications Current Medications: Generic Name Dose Route Start Last Admin Trade Name Freq PRN Reason Stop Dose Admin Acetaminophen 650 mg 07/11/21 23:07 Acetaminophen 325 Mg Tab PO Q4H PRN Pain MILD(1-3)/Fever >100.5/HOPPER Albuterol 2 puff 07/12/21 14:29 Albuterol 8.5 Gm Mdi Inhalation IH Q6HRT PRN Shortness Of Breath Dexamethasone 6 mg 07/16/21 10:00 07/17/21 09:37 Dexamethasone 4 Mg Tab PO 07/20/21 12:00 6 mg DAILY DARY Administration Famotidine 20 mg 07/15/21 22:00 07/17/21 09:37 Famotidine 20 Mg Tab PO 20 mg BID DARY Administration Heparin Sodium (Porcine) 5,000 unit 07/12/21 06:00 07/17/21 13:32 Heparin 5,000 Unit/1 Ml Vial SUB-Q 5,000 unit Q8HR DARY Administration Hydralazine HCl 10 mg 07/11/21 23:09 Hydralazine 20 Mg/1 Ml Inj IV Q6H PRN Blood Pressure Ondansetron HCl 4 mg 07/11/21 23:07 07/13/21 23:59 Ondansetron 4 Mg/2 Ml Inj IV 4 mg Q8H PRN Administration Nausea And Vomiting Sodium Chloride 10 ml 07/12/21 10:00 07/17/21 09:37 Sodium Chloride 0.9% 10 Ml Flush Syringe IV 10 ml BID DARY Administration Sodium Chloride 10 ml 07/11/21 23:07 Sodium Chloride 0.9% 10 Ml Flush Syringe IV PRN PRN LINE FLUSH
[2021-07-18] MEDS: HEPARIN 5,000 UNIT/1 ML VIAL SUB-Q SCH ×3 (05:39→22:59)
[2021-07-18] MEDS: DEXAMETHASONE 4 MG TAB PO SCH (09:31)
[2021-07-18] MEDS: FAMOTIDINE 20 MG TAB PO SCH ×2 (09:31→23:00)
--- NOTE | 2021-07-18 20:37 | Progress Note ---
Assessment and Plan - Patient Problems (1) Acute on chronic respiratory failure with hypoxia Current Visit: Yes Status: Acute Plan to address problem: High flow supplemental oxygen, pulse oximetry, nebulizer therapy, prone positioning while in bed, supportive care. Pulmonary toilet. (2) Elevated liver enzymes Current Visit: Yes Status: Acute Plan to address problem: Supportive care, suspected secondary to coronavirus infection, (3) Pneumonia Current Visit: Yes Status: Acute Plan to address problem: Pneumonia protocol: IV antibiotic therapy, supplemental oxygen, pulse oximetry, (4) Suspected COVID-19 virus infection Current Visit: Yes Status: Acute Plan to address problem: Coronavirus protocol, supportive care, continue current therapy. (5) DVT prophylaxis Current Visit: Yes Status: Acute Plan to address problem: SCD to bilateral lower extremities while in bed, continue prophylactic anticoagulation (6) Advance care planning Current Visit: Yes Status: Acute Plan to address problem: Disease education conducted, care plan discussed, diagnosis discussed, prognosis discussed, patient is DNR. Patient knowledges understanding and agreement with care plan, +30 minutes. History Interval history: 61 YO Male HD #8 with Acute Hypoxemic Respiratory Failure, Coronavirus Infection, Pneumonia, Transaminitis. Pt continues to report persistent shortness of breath. Patient denies pain. Patient states that he is somewhat more comfortable. Patient remains on high flow supplemental oxygen. No reported nursing events. Hospitalist Physical - Constitutional Vitals: Temp Pulse Resp BP Pulse Ox 98.8 F 89 22 125/63 91 07/18/21 15:14 07/18/21 15:14 07/18/21 15:14 07/18/21 15:14 07/18/21 20:15 General appearance: Present: mild distress, well-nourished, obese, other (Requiring high-flow nasal cannula 10 to 15 L) - EENT Eyes: Present: PERRL ENT: hearing intact - Neck Neck: Present: supple - Respiratory Respiratory effort: labored Respiratory: bilateral: diminished, rhonchi - Cardiovascular Rhythm: regular Heart Sounds: Present: S1 & S2 - Extremities Extremity abnormal: edema Peripheral Pulses: within normal limits - Abdominal General gastrointestinal: soft, non-tender, non-distended - Integumentary Integumentary: Present: clear, dry - Psychiatric Psychiatric: cooperative - Neurologic Neurologic: CNII-XII intact HEART Score - HEART Score Troponin: Troponin T < 0.010 ng/mL (0.00-0.029) 07/11/21 15:40 Results - Labs CBC & Chem 7: 07/14/21 05:44 07/14/21 05:44 Labs: Laboratory Last Values WBC 7.2 K/mm3 (4.5-11.0) 07/14/21 05:44 RBC 4.05 M/mm3 (3.65-5.03) 07/14/21 05:44 Hgb 12.4 gm/dl (11.8-15.2) 07/14/21 05:44 Hct 38.5 % (35.5-45.6) 07/14/21 05:44 MCV 95 fl (84-94) H 07/14/21 05:44 MCH 31 pg (28-32) 07/14/21 05:44 MCHC 32 % (32-34) 07/14/21 05:44 RDW 13.0 % (13.2-15.2) L 07/14/21 05:44 Plt Count 233 K/mm3 (140-440) 07/14/21 05:44 Lymph % (Auto) 8.1 % (13.4-35.0) L 07/14/21 05:44 [place] % (Auto) 13.2 % (0.0-7.3) H 07/14/21 05:44 Eos % (Auto) 0.0 % (0.0-4.3) 07/14/21 05:44 Baso % (Auto) 0.1 % (0.0-1.8) 07/14/21 05:44 Lymph # (Auto) 0.6 K/mm3 (1.2-5.4) L 07/14/21 05:44 [place] # (Auto) 0.9 K/mm3 (0.0-0.8) H 07/14/21 05:44 Eos # (Auto) 0.0 K/mm3 (0.0-0.4) 07/14/21 05:44 Baso # (Auto) 0.0 K/mm3 (0.0-0.1) 07/14/21 05:44 Seg Neutrophils % 78.6 % (40.0-70.0) H 07/14/21 05:44 Seg Neutrophils # 5.6 K/mm3 (1.8-7.7) 07/14/21 05:44 D-Dimer 398.85 ng/mlDDU (0-234) H 07/14/21 05:44 Sodium 142 mmol/L (137-145) 07/14/21 05:44 Potassium 4.3 mmol/L (3.6-5.0) 07/14/21 05:44 Chloride 102.8 mmol/L (98-107) 07/14/21 05:44 Carbon Dioxide 30 mmol/L (22-30) 07/14/21 05:44 Anion Gap 14 mmol/L 07/14/21 05:44 BUN 45 mg/dL (9-20) H 07/14/21 05:44 Creatinine 1.1 mg/dL (0.8-1.3) 07/14/21 05:44 Estimated GFR > 60 ml/min 07/14/21 05:44 BUN/Creatinine Ratio 41 % 07/14/21 05:44 Glucose 112 mg/dL (75-100) H 07/14/21 05:44 Calcium 9.0 mg/dL (8.4-10.2) 07/14/21 05:44 Magnesium 2.60 mg/dL (1.7-2.3) H 07/11/21 15:40 Ferritin 7037.0 ng/mL (30.0-300.0) H 07/14/21 05:44 Total Bilirubin 1.60 mg/dL (0.1-1.2) H 07/14/21 05:44 AST 166 units/L (5-40) H 07/14/21 05:44 ALT 177 units/L (7-56) H 07/14/21 05:44 Alkaline Phosphatase 84 units/L (35-129) 07/14/21 05:44 Lactate Dehydrogenase 755 units/L (91-180) H 07/14/21 05:44 Troponin T < 0.010 ng/mL (0.00-0.029) 07/11/21 15:40 C-Reactive Protein 9.50 mg/dL (0.00-1.30) H 07/14/21 05:44 Total Protein 7.2 g/dL (6.3-8.2) 07/14/21 05:44 Albumin 3.1 g/dL (3.9-5) L 07/14/21 05:44 Albumin/Globulin Ratio 0.8 % 07/14/21 05:44 Lipase 60 units/L (13-60) 07/11/21 15:40 Procalcitonin 0.45 ng/mL (<0.15) 07/12/21 00:16 Coronavirus (PCR) Positive (Negative) A 07/11/21 10:47 Allen/IV: Voiding Method Toilet Active Medications - Current Medications Current Medications: Generic Name Dose Route Start Last Admin Trade Name Freq PRN Reason Stop Dose Admin Acetaminophen 650 mg 07/11/21 23:07 Acetaminophen 325 Mg Tab PO Q4H PRN Pain MILD(1-3)/Fever >100.5/HOPPER Albuterol 2 puff 07/12/21 14:29 Albuterol 8.5 Gm Mdi Inhalation IH Q6HRT PRN Shortness Of Breath Dexamethasone 6 mg 07/16/21 10:00 07/18/21 09:31 Dexamethasone 4 Mg Tab PO 07/20/21 12:00 6 mg DAILY DARY Administration Famotidine 20 mg 07/15/21 22:00 07/18/21 09:31 Famotidine 20 Mg Tab PO 20 mg BID DARY Administration Heparin Sodium (Porcine) 5,000 unit 07/12/21 06:00 07/18/21 13:25 Heparin 5,000 Unit/1 Ml Vial SUB-Q 5,000 unit Q8HR DARY Administration Hydralazine HCl 10 mg 07/11/21 23:09 Hydralazine 20 Mg/1 Ml Inj IV Q6H PRN Blood Pressure Ondansetron HCl 4 mg 07/11/21 23:07 07/13/21 23:59 Ondansetron 4 Mg/2 Ml Inj IV 4 mg Q8H PRN Administration Nausea And Vomiting Sodium Chloride 10 ml 07/12/21 10:00 07/18/21 09:31 Sodium Chloride 0.9% 10 Ml Flush Syringe IV 10 ml BID DARY Administration Sodium Chloride 10 ml 07/11/21 23:07 Sodium Chloride 0.9% 10 Ml Flush Syringe IV PRN PRN LINE FLUSH
[2021-07-19] MEDS: HEPARIN 5,000 UNIT/1 ML VIAL SUB-Q SCH ×3 (05:50→21:21)
[2021-07-19] MEDS: DEXAMETHASONE 4 MG TAB PO SCH (09:03)
[2021-07-19] MEDS: FAMOTIDINE 20 MG TAB PO SCH ×2 (09:03→21:21)
[2021-07-19] MEDS ORDERED: oxyCODONE /ACETAMINOPHEN 5-325MG TAB PO PRN (16:30)
--- NOTE | 2021-07-19 18:52 | Progress Note ---
Assessment and Plan - Patient Problems (1) Acute on chronic respiratory failure with hypoxia Current Visit: Yes Status: Acute Plan to address problem: High flow supplemental oxygen, pulse oximetry, nebulizer therapy, prone positioning while in bed, supportive care. Pulmonary toilet. (2) Elevated liver enzymes Current Visit: Yes Status: Acute Plan to address problem: Supportive care, suspected secondary to coronavirus infection, (3) Pneumonia Current Visit: Yes Status: Acute Plan to address problem: Pneumonia protocol: IV antibiotic therapy, supplemental oxygen, pulse oximetry, (4) Suspected COVID-19 virus infection Current Visit: Yes Status: Acute Plan to address problem: Coronavirus protocol, supportive care, continue current therapy. (5) DVT prophylaxis Current Visit: Yes Status: Acute Plan to address problem: SCD to bilateral lower extremities while in bed, continue prophylactic anticoagulation (6) Advance care planning Current Visit: Yes Status: Acute Plan to address problem: Disease education conducted, care plan discussed, diagnosis discussed, prognosis discussed, patient is DNR. Patient acknowledges understanding and agreement with care plan, +30 minutes. Patient requests home hospice care. Home hospice care team notified. History Interval history: 61 YO Male HD #9 with Acute Hypoxemic Respiratory Failure, Coronavirus Infection, Pneumonia, Transaminitis. Pt continues to report persistent shortness of breath. Patient denies pain. Patient states that he is somewhat more comfortable. Patient remains on high flow supplemental oxygen. No reported nursing events. Patient counseled regarding prognosis. Patient elects to be discharged home with home hospice care. Hospitalist Physical - Constitutional Vitals: Temp Pulse Resp BP Pulse Ox 97.8 F 101 H 32 H 135/81 89 07/19/21 16:07 07/19/21 16:07 07/19/21 16:07 07/19/21 16:07 07/19/21 16:07 General appearance: Present: mild distress, well-nourished, obese, other (Requiring high-flow nasal cannula 10 to 15 L) HEART Score - HEART Score Troponin: Troponin T < 0.010 ng/mL (0.00-0.029) 07/11/21 15:40 Results - Labs CBC & Chem 7: 07/14/21 05:44 07/14/21 05:44 Labs: Laboratory Last Values WBC 7.2 K/mm3 (4.5-11.0) 07/14/21 05:44 RBC 4.05 M/mm3 (3.65-5.03) 07/14/21 05:44 Hgb 12.4 gm/dl (11.8-15.2) 07/14/21 05:44 Hct 38.5 % (35.5-45.6) 07/14/21 05:44 MCV 95 fl (84-94) H 07/14/21 05:44 MCH 31 pg (28-32) 07/14/21 05:44 MCHC 32 % (32-34) 07/14/21 05:44 RDW 13.0 % (13.2-15.2) L 07/14/21 05:44 Plt Count 233 K/mm3 (140-440) 07/14/21 05:44 Lymph % (Auto) 8.1 % (13.4-35.0) L 07/14/21 05:44 [place] % (Auto) 13.2 % (0.0-7.3) H 07/14/21 05:44 Eos % (Auto) 0.0 % (0.0-4.3) 07/14/21 05:44 Baso % (Auto) 0.1 % (0.0-1.8) 07/14/21 05:44 Lymph # (Auto) 0.6 K/mm3 (1.2-5.4) L 07/14/21 05:44 [place] # (Auto) 0.9 K/mm3 (0.0-0.8) H 07/14/21 05:44 Eos # (Auto) 0.0 K/mm3 (0.0-0.4) 07/14/21 05:44 Baso # (Auto) 0.0 K/mm3 (0.0-0.1) 07/14/21 05:44 Seg Neutrophils % 78.6 % (40.0-70.0) H 07/14/21 05:44 Seg Neutrophils # 5.6 K/mm3 (1.8-7.7) 07/14/21 05:44 D-Dimer 398.85 ng/mlDDU (0-234) H 07/14/21 05:44 Sodium 142 mmol/L (137-145) 07/14/21 05:44 Potassium 4.3 mmol/L (3.6-5.0) 07/14/21 05:44 Chloride 102.8 mmol/L (98-107) 07/14/21 05:44 Carbon Dioxide 30 mmol/L (22-30) 07/14/21 05:44 Anion Gap 14 mmol/L 07/14/21 05:44 BUN 45 mg/dL (9-20) H 07/14/21 05:44 Creatinine 1.1 mg/dL (0.8-1.3) 07/14/21 05:44 Estimated GFR > 60 ml/min 07/14/21 05:44 BUN/Creatinine Ratio 41 % 07/14/21 05:44 Glucose 112 mg/dL (75-100) H 07/14/21 05:44 Calcium 9.0 mg/dL (8.4-10.2) 07/14/21 05:44 Magnesium 2.60 mg/dL (1.7-2.3) H 07/11/21 15:40 Ferritin 7037.0 ng/mL (30.0-300.0) H 07/14/21 05:44 Total Bilirubin 1.60 mg/dL (0.1-1.2) H 07/14/21 05:44 AST 166 units/L (5-40) H 07/14/21 05:44 ALT 177 units/L (7-56) H 07/14/21 05:44 Alkaline Phosphatase 84 units/L (35-129) 07/14/21 05:44 Lactate Dehydrogenase 755 units/L (91-180) H 07/14/21 05:44 Troponin T < 0.010 ng/mL (0.00-0.029) 07/11/21 15:40 C-Reactive Protein 9.50 mg/dL (0.00-1.30) H 07/14/21 05:44 Total Protein 7.2 g/dL (6.3-8.2) 07/14/21 05:44 Albumin 3.1 g/dL (3.9-5) L 07/14/21 05:44 Albumin/Globulin Ratio 0.8 % 07/14/21 05:44 Lipase 60 units/L (13-60) 07/11/21 15:40 Procalcitonin 0.45 ng/mL (<0.15) 07/12/21 00:16 Coronavirus (PCR) Positive (Negative) A 07/11/21 10:47 Allen/IV: Voiding Method Urinal Active Medications - Current Medications Current Medications: Generic Name Dose Route Start Last Admin Trade Name Freq PRN Reason Stop Dose Admin Acetaminophen 650 mg 07/11/21 23:07 07/19/21 09:03 Acetaminophen 325 Mg Tab PO 650 mg Q4H PRN Administration Pain MILD(1-3)/Fever >100.5/HOPPER Albuterol 2 puff 07/12/21 14:29 Albuterol 8.5 Gm Mdi Inhalation IH Q6HRT PRN Shortness Of Breath Dexamethasone 6 mg 07/16/21 10:00 07/19/21 09:03 Dexamethasone 4 Mg Tab PO 07/20/21 12:00 6 mg DAILY DARY Administration Famotidine 20 mg 07/15/21 22:00 07/19/21 09:03 Famotidine 20 Mg Tab PO 20 mg BID DARY Administration Heparin Sodium (Porcine) 5,000 unit 07/12/21 06:00 07/19/21 14:08 Heparin 5,000 Unit/1 Ml Vial SUB-Q 5,000 unit Q8HR DARY Administration Hydralazine HCl 10 mg 07/11/21 23:09 Hydralazine 20 Mg/1 Ml Inj IV Q6H PRN Blood Pressure Ondansetron HCl 4 mg 07/11/21 23:07 07/13/21 23:59 Ondansetron 4 Mg/2 Ml Inj IV 4 mg Q8H PRN Administration Nausea And Vomiting Oxycodone/Acetaminophen 1 tab 07/19/21 16:30 07/19/21 17:09 Oxycodone /Acetaminophen 5-325mg Tab PO 1 tab Q8H PRN Administration Pain, Moderate (4-6) Sodium Chloride 10 ml 07/12/21 10:00 07/19/21 09:04 Sodium Chloride 0.9% 10 Ml Flush Syringe IV 10 ml BID DARY Administration Sodium Chloride 10 ml 07/11/21 23:07 Sodium Chloride 0.9% 10 Ml Flush Syringe IV PRN PRN LINE FLUSH
[2021-07-20] MEDS: HEPARIN 5,000 UNIT/1 ML VIAL SUB-Q SCH ×3 (05:16→21:29)
[2021-07-20] MEDS: FAMOTIDINE 20 MG TAB PO SCH ×2 (09:33→21:29)
[2021-07-20] MEDS: DEXAMETHASONE 4 MG TAB PO SCH (09:33)
--- NOTE | 2021-07-20 20:58 | Progress Note ---
Assessment and Plan - Patient Problems (1) Acute on chronic respiratory failure with hypoxia Current Visit: Yes Status: Acute Plan to address problem: High flow supplemental oxygen, pulse oximetry, nebulizer therapy, prone positioning while in bed, supportive care. Pulmonary toilet. (2) Elevated liver enzymes Current Visit: Yes Status: Acute Plan to address problem: Supportive care, suspected secondary to coronavirus infection, (3) Pneumonia Current Visit: Yes Status: Acute Plan to address problem: Pneumonia protocol: IV antibiotic therapy, supplemental oxygen, pulse oximetry, (4) Suspected COVID-19 virus infection Current Visit: Yes Status: Acute Plan to address problem: Coronavirus protocol, supportive care, continue current therapy. (5) DVT prophylaxis Current Visit: Yes Status: Acute Plan to address problem: SCD to bilateral lower extremities while in bed, continue prophylactic anticoagulation (6) Advance care planning Current Visit: Yes Status: Acute Plan to address problem: Disease education conducted, care plan discussed, diagnosis discussed, prognosis discussed, patient is DNR. Patient acknowledges understanding and agreement with care plan, +30 minutes. Patient requests home hospice care. Home hospice care team notified. History Interval history: 61 YO Male HD #10 with Acute Hypoxemic Respiratory Failure, Coronavirus Infection, Pneumonia, Transaminitis. Pt continues to report persistent shortness of breath. Patient denies pain. Patient remains comfortable on high flow supplemental oxygen. Patient medically optimized. Patient prognosis discussed. Patient elects to be discharged home with hospice care. Patient pending discharge home in a.m. after home equipment has been arranged. Hospitalist Physical - Constitutional Vitals: Temp Pulse Resp BP Pulse Ox 98.9 F 100 H 30 H 139/69 92 07/20/21 05:07 07/20/21 05:00 07/20/21 11:00 07/20/21 05:00 07/20/21 11:00 General appearance: Present: mild distress, well-nourished, obese, other (Requiring high-flow nasal cannula 10 to 15 L) - EENT Eyes: Present: PERRL, EOM intact - Neck Neck: Present: supple - Respiratory Respiratory effort: labored Respiratory: bilateral: diminished - Cardiovascular Rhythm: regular Heart Sounds: Present: S1 & S2 - Extremities Extremities: no ischemia Peripheral Pulses: within normal limits - Integumentary Integumentary: Present: clear, dry - Psychiatric Psychiatric: appropriate mood/affect, cooperative - Neurologic Neurologic: CNII-XII intact HEART Score - HEART Score Troponin: Troponin T < 0.010 ng/mL (0.00-0.029) 07/11/21 15:40 Results - Labs CBC & Chem 7: 07/14/21 05:44 07/14/21 05:44 Labs: Laboratory Last Values WBC 7.2 K/mm3 (4.5-11.0) 07/14/21 05:44 RBC 4.05 M/mm3 (3.65-5.03) 07/14/21 05:44 Hgb 12.4 gm/dl (11.8-15.2) 07/14/21 05:44 Hct 38.5 % (35.5-45.6) 07/14/21 05:44 MCV 95 fl (84-94) H 07/14/21 05:44 MCH 31 pg (28-32) 07/14/21 05:44 MCHC 32 % (32-34) 07/14/21 05:44 RDW 13.0 % (13.2-15.2) L 07/14/21 05:44 Plt Count 233 K/mm3 (140-440) 07/14/21 05:44 Lymph % (Auto) 8.1 % (13.4-35.0) L 07/14/21 05:44 [place] % (Auto) 13.2 % (0.0-7.3) H 07/14/21 05:44 Eos % (Auto) 0.0 % (0.0-4.3) 07/14/21 05:44 Baso % (Auto) 0.1 % (0.0-1.8) 07/14/21 05:44 Lymph # (Auto) 0.6 K/mm3 (1.2-5.4) L 07/14/21 05:44 [place] # (Auto) 0.9 K/mm3 (0.0-0.8) H 07/14/21 05:44 Eos # (Auto) 0.0 K/mm3 (0.0-0.4) 07/14/21 05:44 Baso # (Auto) 0.0 K/mm3 (0.0-0.1) 07/14/21 05:44 Seg Neutrophils % 78.6 % (40.0-70.0) H 07/14/21 05:44 Seg Neutrophils # 5.6 K/mm3 (1.8-7.7) 07/14/21 05:44 D-Dimer 398.85 ng/mlDDU (0-234) H 07/14/21 05:44 Sodium 142 mmol/L (137-145) 07/14/21 05:44 Potassium 4.3 mmol/L (3.6-5.0) 07/14/21 05:44 Chloride 102.8 mmol/L (98-107) 07/14/21 05:44 Carbon Dioxide 30 mmol/L (22-30) 07/14/21 05:44 Anion Gap 14 mmol/L 07/14/21 05:44 BUN 45 mg/dL (9-20) H 07/14/21 05:44 Creatinine 1.1 mg/dL (0.8-1.3) 07/14/21 05:44 Estimated GFR > 60 ml/min 07/14/21 05:44 BUN/Creatinine Ratio 41 % 07/14/21 05:44 Glucose 112 mg/dL (75-100) H 07/14/21 05:44 Calcium 9.0 mg/dL (8.4-10.2) 07/14/21 05:44 Magnesium 2.60 mg/dL (1.7-2.3) H 07/11/21 15:40 Ferritin 7037.0 ng/mL (30.0-300.0) H 07/14/21 05:44 Total Bilirubin 1.60 mg/dL (0.1-1.2) H 07/14/21 05:44 AST 166 units/L (5-40) H 07/14/21 05:44 ALT 177 units/L (7-56) H 07/14/21 05:44 Alkaline Phosphatase 84 units/L (35-129) 07/14/21 05:44 Lactate Dehydrogenase 755 units/L (91-180) H 07/14/21 05:44 Troponin T < 0.010 ng/mL (0.00-0.029) 07/11/21 15:40 C-Reactive Protein 9.50 mg/dL (0.00-1.30) H 07/14/21 05:44 Total Protein 7.2 g/dL (6.3-8.2) 07/14/21 05:44 Albumin 3.1 g/dL (3.9-5) L 07/14/21 05:44 Albumin/Globulin Ratio 0.8 % 07/14/21 05:44 Lipase 60 units/L (13-60) 07/11/21 15:40 Procalcitonin 0.45 ng/mL (<0.15) 07/12/21 00:16 Coronavirus (PCR) Positive (Negative) A 07/11/21 10:47 Allen/IV: Voiding Method Urinal Active Medications - Current Medications Current Medications: Generic Name Dose Route Start Last Admin Trade Name Freq PRN Reason Stop Dose Admin Acetaminophen 650 mg 07/11/21 23:07 07/19/21 09:03 Acetaminophen 325 Mg Tab PO 650 mg Q4H PRN Administration Pain MILD(1-3)/Fever >100.5/HOPPER Albuterol 2 puff 07/12/21 14:29 Albuterol 8.5 Gm Mdi Inhalation IH Q6HRT PRN Shortness Of Breath Famotidine 20 mg 07/15/21 22:00 07/20/21 09:33 Famotidine 20 Mg Tab PO 20 mg BID DARY Administration Heparin Sodium (Porcine) 5,000 unit 07/12/21 06:00 07/20/21 14:12 Heparin 5,000 Unit/1 Ml Vial SUB-Q 5,000 unit Q8HR DARY Administration Hydralazine HCl 10 mg 07/11/21 23:09 Hydralazine 20 Mg/1 Ml Inj IV Q6H PRN Blood Pressure Ondansetron HCl 4 mg 07/11/21 23:07 07/13/21 23:59 Ondansetron 4 Mg/2 Ml Inj IV 4 mg Q8H PRN Administration Nausea And Vomiting Oxycodone/Acetaminophen 1 tab 07/19/21 16:30 07/19/21 17:09 Oxycodone /Acetaminophen 5-325mg Tab PO 1 tab Q8H PRN Administration Pain, Moderate (4-6) Sodium Chloride 10 ml 07/12/21 10:00 07/20/21 09:33 Sodium Chloride 0.9% 10 Ml Flush Syringe IV 10 ml BID DARY Administration Sodium Chloride 10 ml 07/11/21 23:07 Sodium Chloride 0.9% 10 Ml Flush Syringe IV PRN PRN LINE FLUSH Nutrition/Malnutrition Assess - Dietary Evaluation Nutrition/Malnutrition Findings: Nutrition Notes Start: 07/14/21 09:12 Freq: Status: Active Protocol: Document 07/20/21 12:54 MK (Rec: 07/20/21 12:55 MK [id number]) Nutrition Notes Need for Assessment generated from: LOS Initial or Follow up Brief Note Subjective/Other Information Screen for LOS. Pt not answering phone. Per chart, pt discharging to home hospice today. RN unsure of intakes but states pt could likely benefit from softer diet. Nutrition Intervention Change Diet Order: [facility] Follow-Up By: 07/22/21 Additional Comments F/u: intakes
[2021-07-21] MEDS: HEPARIN 5,000 UNIT/1 ML VIAL SUB-Q SCH ×3 (06:06→22:12)
[2021-07-21] MEDS: FAMOTIDINE 20 MG TAB PO SCH ×2 (09:39→22:12)
--- NOTE | 2021-07-21 19:50 | Progress Note ---
Assessment and Plan Assessment and plan: -- COVID-19 virus infection Current Visit: Yes Status: Acute Coronavirus protocol, supportive care, continue current therapy. -- Acute respiratory failure with hypoxia Current Visit: Yes Status: Acute Requiring 40 L high flow nasal cannula oxygen 40 L/100%/91% O2 sats Patient is critically ill with poor prognosis Continues to require very high flow oxygen barely saturating 90 to 91% Hospice evaluated the patient, recommend to discharge once high flow oxygen requirement reduces to at least 20 L However hospice physician representative does not feel comfortable discharging the patient on 40 L Recommended to wean gradually to 20 L to be eligible for home hospice The high probability of a clinically significant, sudden or life threatening deterioration of the multiple system(s) required my full and direct attention, intervention and personal management. The aggregate critical care time was [35] minutes. This time is in addition to time spent performing reported procedures but includes the following: [x] Data Review and interpretation [x] Patient assessment and monitoring of vital signs [x] Documentation [x] Medication orders and management --Elevated liver enzymes Current Visit: Yes Status: Acute Supportive care, suspected secondary to coronavirus infection, --Pneumonia Current Visit: Yes Status: Acute Continue IV antibiotics, supplemental oxygen Follow cultures, procalcitonin high ID following -- DVT prophylaxis Current Visit: Yes Status: Acute SCD to bilateral lower extremities while in bed, continue prophylactic anticoagulation -- Advance care planning Plan of care reviewed with the patient and his nurse Discussed in detail patient's condition treatment plan importance of proning Home O2 evaluation, serial assessment of the ill illness explained to the patient He verbalized understanding of how critically ill he is We will closely monitor the patient and adjust management as needed DC planning per case management Critical care time 35 minutes Possible home with home hospice in 1 to 2 days if stable History Interval history: I have seen and examined the patient at the bedside Patient's chart and medications reviewed Patient is critically ill remains on high flow oxygen of 40 L/100% nonrebreather/90% O2 sats Patient is in severe distress Complains of generalized weakness Hospitalist Physical - Constitutional Vitals: Temp Pulse Resp BP Pulse Ox 98.4 F 107 H 28 H 124/68 88 07/21/21 10:45 07/21/21 10:45 07/21/21 11:00 07/21/21 10:45 07/21/21 16:03 General appearance: Present: mild distress, well-nourished, obese, other (On high flow oxygen, anxious) - EENT Eyes: Present: PERRL, EOM intact - Neck Neck: Present: supple, normal ROM - Respiratory Respiratory effort: normal Respiratory: bilateral: diminished, rhonchi, negative: rales, wheezing - Cardiovascular Rhythm: regular Heart Sounds: Present: S1 & S2 - Extremities Extremities: no ischemia, No edema - Abdominal General gastrointestinal: soft, non-tender, non-distended, normal bowel sounds - Integumentary Integumentary: Present: clear, warm - Psychiatric Psychiatric: appropriate mood/affect, cooperative - Neurologic Neurologic: CNII-XII intact, moves all extremities HEART Score - HEART Score Troponin: Troponin T < 0.010 ng/mL (0.00-0.029) 07/11/21 15:40 Results - Labs CBC & Chem 7: 07/14/21 05:44 07/14/21 05:44 Labs: Laboratory Last Values WBC 7.2 K/mm3 (4.5-11.0) 07/14/21 05:44 RBC 4.05 M/mm3 (3.65-5.03) 07/14/21 05:44 Hgb 12.4 gm/dl (11.8-15.2) 07/14/21 05:44 Hct 38.5 % (35.5-45.6) 07/14/21 05:44 MCV 95 fl (84-94) H 07/14/21 05:44 MCH 31 pg (28-32) 07/14/21 05:44 MCHC 32 % (32-34) 07/14/21 05:44 RDW 13.0 % (13.2-15.2) L 07/14/21 05:44 Plt Count 233 K/mm3 (140-440) 07/14/21 05:44 Lymph % (Auto) 8.1 % (13.4-35.0) L 07/14/21 05:44 [place] % (Auto) 13.2 % (0.0-7.3) H 07/14/21 05:44 Eos % (Auto) 0.0 % (0.0-4.3) 07/14/21 05:44 Baso % (Auto) 0.1 % (0.0-1.8) 07/14/21 05:44 Lymph # (Auto) 0.6 K/mm3 (1.2-5.4) L 07/14/21 05:44 [place] # (Auto) 0.9 K/mm3 (0.0-0.8) H 07/14/21 05:44 Eos # (Auto) 0.0 K/mm3 (0.0-0.4) 07/14/21 05:44 Baso # (Auto) 0.0 K/mm3 (0.0-0.1) 07/14/21 05:44 Seg Neutrophils % 78.6 % (40.0-70.0) H 07/14/21 05:44 Seg Neutrophils # 5.6 K/mm3 (1.8-7.7) 07/14/21 05:44 D-Dimer 398.85 ng/mlDDU (0-234) H 07/14/21 05:44 Sodium 142 mmol/L (137-145) 07/14/21 05:44 Potassium 4.3 mmol/L (3.6-5.0) 07/14/21 05:44 Chloride 102.8 mmol/L (98-107) 07/14/21 05:44 Carbon Dioxide 30 mmol/L (22-30) 07/14/21 05:44 Anion Gap 14 mmol/L 07/14/21 05:44 BUN 45 mg/dL (9-20) H 07/14/21 05:44 Creatinine 1.1 mg/dL (0.8-1.3) 07/14/21 05:44 Estimated GFR > 60 ml/min 07/14/21 05:44 BUN/Creatinine Ratio 41 % 07/14/21 05:44 Glucose 112 mg/dL (75-100) H 07/14/21 05:44 Calcium 9.0 mg/dL (8.4-10.2) 07/14/21 05:44 Magnesium 2.60 mg/dL (1.7-2.3) H 07/11/21 15:40 Ferritin 7037.0 ng/mL (30.0-300.0) H 07/14/21 05:44 Total Bilirubin 1.60 mg/dL (0.1-1.2) H 07/14/21 05:44 AST 166 units/L (5-40) H 07/14/21 05:44 ALT 177 units/L (7-56) H 07/14/21 05:44 Alkaline Phosphatase 84 units/L (35-129) 07/14/21 05:44 Lactate Dehydrogenase 755 units/L (91-180) H 07/14/21 05:44 Troponin T < 0.010 ng/mL (0.00-0.029) 07/11/21 15:40 C-Reactive Protein 9.50 mg/dL (0.00-1.30) H 07/14/21 05:44 Total Protein 7.2 g/dL (6.3-8.2) 07/14/21 05:44 Albumin 3.1 g/dL (3.9-5) L 07/14/21 05:44 Albumin/Globulin Ratio 0.8 % 07/14/21 05:44 Lipase 60 units/L (13-60) 07/11/21 15:40 Procalcitonin 0.45 ng/mL (<0.15) 07/12/21 00:16 Coronavirus (PCR) Positive (Negative) A 07/11/21 10:47 Allen/IV: Voiding Method Toilet Active Medications - Current Medications Current Medications: Generic Name Dose Route Start Last Admin Trade Name Freq PRN Reason Stop Dose Admin Acetaminophen 650 mg 07/11/21 23:07 07/19/21 09:03 Acetaminophen 325 Mg Tab PO 650 mg Q4H PRN Administration Pain MILD(1-3)/Fever >100.5/HOPPER Albuterol 2 puff 07/12/21 14:29 Albuterol 8.5 Gm Mdi Inhalation IH Q6HRT PRN Shortness Of Breath Famotidine 20 mg 07/15/21 22:00 07/21/21 09:39 Famotidine 20 Mg Tab PO 20 mg BID DARY Administration Heparin Sodium (Porcine) 5,000 unit 07/12/21 06:00 07/21/21 13:32 Heparin 5,000 Unit/1 Ml Vial SUB-Q 5,000 unit Q8HR DARY Administration Hydralazine HCl 10 mg 07/11/21 23:09 Hydralazine 20 Mg/1 Ml Inj IV Q6H PRN Blood Pressure Ondansetron HCl 4 mg 07/11/21 23:07 07/13/21 23:59 Ondansetron 4 Mg/2 Ml Inj IV 4 mg Q8H PRN Administration Nausea And Vomiting Oxycodone/Acetaminophen 1 tab 07/19/21 16:30 07/19/21 17:09 Oxycodone /Acetaminophen 5-325mg Tab PO 1 tab Q8H PRN Administration Pain, Moderate (4-6) Sodium Chloride 10 ml 07/12/21 10:00 07/21/21 09:39 Sodium Chloride 0.9% 10 Ml Flush Syringe IV 10 ml BID DARY Administration Sodium Chloride 10 ml 07/11/21 23:07 Sodium Chloride 0.9% 10 Ml Flush Syringe IV PRN PRN LINE FLUSH Nutrition/Malnutrition Assess - Dietary Evaluation Nutrition/Malnutrition Findings: Nutrition Notes Start: 07/14/21 09:12 Freq: Status: Active Protocol: Document 07/20/21 12:54 (Rec: 07/20/21 12:55 MK [id number]) Nutrition Notes Need for Assessment generated from: LOS Initial or Follow up Brief Note Subjective/Other Information Screen for LOS. Pt not answering phone. Per chart, pt discharging to home hospice today. RN unsure of intakes but states pt could likely benefit from softer diet. Nutrition Intervention Change Diet Order: [facility] soft Follow-Up By: 07/22/21 Additional Comments F/u: intakes
[2021-07-22] MEDS: HEPARIN 5,000 UNIT/1 ML VIAL SUB-Q SCH ×3 (05:20→21:12)
--- NOTE | 2021-07-22 09:45 | Progress Note ---
Assessment and Plan Assessment and plan: -- Acute respiratory failure with hypoxia Current Visit: Yes Status: Acute Continues to require 40 L high flow nasal cannula oxygen 40 L/100%/93% O2 sats Wean as tolerated, home O2 evaluation at discharge Patient will be discharged to home hospice once his O2 requirements come down to 20 L nasal cannula[per hospice] The high probability of a clinically significant, sudden or life threatening deterioration of the multiple system(s) required my full and direct attention, intervention and personal management. The aggregate critical care time was [40] minutes. This time is in addition to time spent performing reported procedures but includes the following: [x] Data Review and interpretation [x] Patient assessment and monitoring of vital signs [x] Documentation [x] Medication orders and management -- COVID-19 virus infection Current Visit: Yes Status: Acute Coronavirus protocol, supportive care, continue current therapy. Patient remains on high flow oxygen 40 L/100% FiO2/93 O2 sats wean as tolerated and home O2 evaluation at discharge --Elevated liver enzymes Current Visit: Yes Status: Acute Supportive care, suspected secondary to coronavirus infection, --Pneumonia Current Visit: Yes Status: Acute Continue IV antibiotics, supplemental oxygen Follow cultures, procalcitonin high ID following -- DVT prophylaxis Current Visit: Yes Status: Acute SCD to bilateral lower extremities while in bed, continue prophylactic anticoagulation -- Advance care planning Current Visit: Yes Status: Acute Disease education conducted, care plan discussed, diagnosis discussed, prognosis discussed, patient is DNR. Patient acknowledges understanding and agreement with care plan, +30 minutes. Patient requests home hospice care. Home hospice care team notified. We will closely monitor the patient and adjust management as needed Patient continues to be on high flow nasal cannula oxygen Wean as tolerated .patient is critically ill DNR status, awaiting DC to home hospice and O2 requirements are lower DC planning per case management Critical care time 45 minutes 07/21/2021; patient is critically ill Anxious, continues to be on high flow oxygen and 100% nonrebreather Hospice evaluated the patient, recommend discharge to home hospice when his high flow oxygen levels Come down to 20 L 07/22/2021; patient continues to require high flow oxygen 40 L/100% Wean as tolerated, critically ill poor prognosis History Interval history: I have seen and examined the patient at the bedside Patient's chart and medications reviewed Patient remains on high flow oxygen 40 L/100% FiO2/93 O2 sats patient is in mild distress wean as tolerated and home O2 evaluation at discharge Hospitalist Physical - Constitutional Vitals: Temp Pulse Resp BP Pulse Ox 98.7 F 112 H 18 118/76 93 07/22/21 03:56 07/22/21 03:56 07/22/21 03:56 07/22/21 03:56 07/22/21 08:23 General appearance: Present: no acute distress, cachectic, obese, disheveled - EENT Eyes: Present: PERRL, EOM intact - Neck Neck: Present: supple, normal ROM - Respiratory Respiratory effort: labored Respiratory: bilateral: diminished, rhonchi, negative: rales, wheezing - Cardiovascular Rhythm: regular Heart Sounds: Present: S1 & S2 - Extremities Extremities: no ischemia, No edema - Abdominal General gastrointestinal: soft, non-tender, non-distended, normal bowel sounds - Integumentary Integumentary: Present: clear, warm - Psychiatric Psychiatric: appropriate mood/affect, cooperative - Neurologic Neurologic: moves all extremities HEART Score - HEART Score Troponin: Troponin T < 0.010 ng/mL (0.00-0.029) 07/11/21 15:40 Results - Labs CBC & Chem 7: 07/14/21 05:44 07/14/21 05:44 Labs: Laboratory Last Values WBC 7.2 K/mm3 (4.5-11.0) 07/14/21 05:44 RBC 4.05 M/mm3 (3.65-5.03) 07/14/21 05:44 Hgb 12.4 gm/dl (11.8-15.2) 07/14/21 05:44 Hct 38.5 % (35.5-45.6) 07/14/21 05:44 MCV 95 fl (84-94) H 07/14/21 05:44 MCH 31 pg (28-32) 07/14/21 05:44 MCHC 32 % (32-34) 07/14/21 05:44 RDW 13.0 % (13.2-15.2) L 07/14/21 05:44 Plt Count 233 K/mm3 (140-440) 07/14/21 05:44 Lymph % (Auto) 8.1 % (13.4-35.0) L 07/14/21 05:44 [place] % (Auto) 13.2 % (0.0-7.3) H 07/14/21 05:44 Eos % (Auto) 0.0 % (0.0-4.3) 07/14/21 05:44 Baso % (Auto) 0.1 % (0.0-1.8) 07/14/21 05:44 Lymph # (Auto) 0.6 K/mm3 (1.2-5.4) L 07/14/21 05:44 [place] # (Auto) 0.9 K/mm3 (0.0-0.8) H 07/14/21 05:44 Eos # (Auto) 0.0 K/mm3 (0.0-0.4) 07/14/21 05:44 Baso # (Auto) 0.0 K/mm3 (0.0-0.1) 07/14/21 05:44 Seg Neutrophils % 78.6 % (40.0-70.0) H 07/14/21 05:44 Seg Neutrophils # 5.6 K/mm3 (1.8-7.7) 07/14/21 05:44 D-Dimer 398.85 ng/mlDDU (0-234) H 07/14/21 05:44 Sodium 142 mmol/L (137-145) 07/14/21 05:44 Potassium 4.3 mmol/L (3.6-5.0) 07/14/21 05:44 Chloride 102.8 mmol/L (98-107) 07/14/21 05:44 Carbon Dioxide 30 mmol/L (22-30) 07/14/21 05:44 Anion Gap 14 mmol/L 07/14/21 05:44 BUN 45 mg/dL (9-20) H 07/14/21 05:44 Creatinine 1.1 mg/dL (0.8-1.3) 07/14/21 05:44 Estimated GFR > 60 ml/min 07/14/21 05:44 BUN/Creatinine Ratio 41 % 07/14/21 05:44 Glucose 112 mg/dL (75-100) H 07/14/21 05:44 Calcium 9.0 mg/dL (8.4-10.2) 07/14/21 05:44 Magnesium 2.60 mg/dL (1.7-2.3) H 07/11/21 15:40 Ferritin 7037.0 ng/mL (30.0-300.0) H 07/14/21 05:44 Total Bilirubin 1.60 mg/dL (0.1-1.2) H 07/14/21 05:44 AST 166 units/L (5-40) H 07/14/21 05:44 ALT 177 units/L (7-56) H 07/14/21 05:44 Alkaline Phosphatase 84 units/L (35-129) 07/14/21 05:44 Lactate Dehydrogenase 755 units/L (91-180) H 07/14/21 05:44 Troponin T < 0.010 ng/mL (0.00-0.029) 07/11/21 15:40 C-Reactive Protein 9.50 mg/dL (0.00-1.30) H 07/14/21 05:44 Total Protein 7.2 g/dL (6.3-8.2) 07/14/21 05:44 Albumin 3.1 g/dL (3.9-5) L 07/14/21 05:44 Albumin/Globulin Ratio 0.8 % 07/14/21 05:44 Lipase 60 units/L (13-60) 07/11/21 15:40 Procalcitonin 0.45 ng/mL (<0.15) 07/12/21 00:16 Coronavirus (PCR) Positive (Negative) A 07/11/21 10:47 Allen/IV: Voiding Method Urinal Active Medications - Current Medications Current Medications: Generic Name Dose Route Start Last Admin Trade Name Freq PRN Reason Stop Dose Admin Acetaminophen 650 mg 07/11/21 23:07 07/19/21 09:03 Acetaminophen 325 Mg Tab PO 650 mg Q4H PRN Administration Pain MILD(1-3)/Fever >100.5/HOPPER Albuterol 2 puff 07/12/21 14:29 Albuterol 8.5 Gm Mdi Inhalation IH Q6HRT PRN Shortness Of Breath Famotidine 20 mg 07/15/21 22:00 07/21/21 22:12 Famotidine 20 Mg Tab PO 20 mg BID DARY Administration Heparin Sodium (Porcine) 5,000 unit 07/12/21 06:00 07/22/21 05:20 Heparin 5,000 Unit/1 Ml Vial SUB-Q 5,000 unit Q8HR DARY Administration Hydralazine HCl 10 mg 07/11/21 23:09 Hydralazine 20 Mg/1 Ml Inj IV Q6H PRN Blood Pressure Ondansetron HCl 4 mg 07/11/21 23:07 07/13/21 23:59 Ondansetron 4 Mg/2 Ml Inj IV 4 mg Q8H PRN Administration Nausea And Vomiting Oxycodone/Acetaminophen 1 tab 07/19/21 16:30 07/19/21 17:09 Oxycodone /Acetaminophen 5-325mg Tab PO 1 tab Q8H PRN Administration Pain, Moderate (4-6) Sodium Chloride 10 ml 07/12/21 10:00 07/21/21 22:13 Sodium Chloride 0.9% 10 Ml Flush Syringe IV 10 ml BID DARY Administration Sodium Chloride 10 ml 07/11/21 23:07 Sodium Chloride 0.9% 10 Ml Flush Syringe IV PRN PRN LINE FLUSH Nutrition/Malnutrition Assess - Dietary Evaluation Nutrition/Malnutrition Findings: Nutrition Notes Start: 07/14/21 09:12 Freq: Status: Active Protocol: Document 07/20/21 12:54 (Rec: 07/20/21 12:55 [id number]) Nutrition Notes Need for Assessment generated from: LOS Initial or Follow up Brief Note Subjective/Other Information Screen for LOS. Pt not answering phone. Per chart, pt discharging to home hospice today. RN unsure of intakes but states pt could likely benefit from softer diet. Nutrition Intervention Change Diet Order: [facility] soft Follow-Up By: 07/22/21 Additional Comments F/u: intakes
[2021-07-22] MEDS: FAMOTIDINE 20 MG TAB PO SCH ×2 (11:55→21:12)
--- NOTE | 2021-07-22 19:53 | Event Note ---
Date: 07/22/21 I called patient's daughter Ms. Alissa Tovar at [phone] and discussed in detail patient's critical condition, treatment plan Requirement of high flow oxygen, awaiting home health hospice discharge planning when patient's high flow oxygen decreases from 40 L to 20 L Per hospice personal, she had many questions, I answered all of them and enc ouraged her to call back if she has new concerns.
[2021-07-23 04:12] VITALS: BP 111/73
--- NOTE | 2021-07-23 07:34 | Death Summary ---
Summary - Providers Date of service: 07/23/21 Consults: 07/11/21 23:07 Consult to Physician [CONS] Routine Comment: Consulting Provider: LORETO OLSON Physician Instructions: Reason For Exam: Covid 07/16/21 13:28 Physical Therapy Evaluation and Treat [CONS] Routine Comment: Reason For Exam: COVID-19/general debility/eval and treat/DC needs Attending: AUGUST NAGEL - summary Date of admission: 07/13/21 08:00 Date of : 07/23/21 Reason for admission: Fever/shortness of breath/pneumonia
--- NOTE | 2021-07-23 20:25 | Event Note ---
Date: 07/23/21 07/23/21-at around 0530 am-patients nurse called code MET-patient found not breathing, Telemetary monitor applied-patient has no cardiac activity-flatline. Patient is DNR. Dr Mcdonnell the attending present. patient family was called and notified.
--- NOTE | 2021-07-23 20:34 | Death Note ---
Note Date of : 07/23/21 Time of : 05:30 Time Pronounced: 05:55 - Preliminary Cause of (problem) (1) Acute on chronic respiratory failure with hypoxia Preliminary cause of 07/23/21-at around 0530 am-patients nurse called code MET-patient found not breathing, Telemetary monitor applied-patient has no cardiac activity-(flatline on the monitor). Patient is DNR. Dr Mcdonnell the attending present. patient family was called and notified. pronounced by Dr Mcdonnell the attending at 05:55
== END 2021-07-23 11:30 | DRG 177 ==
LOC: ED 13:08 → 3A 23:58 → INTOOBSV 23:58 → OBSVTOIN 07-13 08:00 → 3A 07-13 20:19
PROVIDERS: ADMIT Hospitalist; ATTEND Internal Medicine
DX: U07.1 COVID-19 (principal); J96.21 Acute and chronic respiratory failure with hypoxia; J12.82 Pneumonia due to coronavirus disease 2019; R74.01 Elevation of levels of liver transaminase levels; E66.9 Obesity, unspecified; Z66 Do not resuscitate; Z68.37 Body mass index [BMI] 37.0-37.9, adult
CPT/HCPCS: 36415; 71045; 71046; 80048; 80053; 82728; 82947; 83615; 83690; 83735; 84145; 84484; 85025; 85379; 86140; 87040; 93005; 94640; 94760; G0378; J0456; J0696; J1100; J1644; J2405; J8540; U0003